=== PATIENT | female | born 1980 | race American Indian/Alaskan Native ===

== ENCOUNTER 2020-10-05 23:22 | Outpatient (CLI) | payer MEDICAID ==
[2020-10-05] MEDS ORDERED: LACTATED RINGERS 1,000 ML ONE (23:45)
[2020-10-06] MEDS ORDERED: LACTATED RINGERS 1,000 ML IV ONE (00:28)
[2020-10-06 01:56] VITALS: BP 133/76
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
== END 2020-10-06 02:46 | disposition home or self-care (01) ==
LOC: TRG 23:22 → APU 23:26 → TRG 10-06 02:46
PROVIDERS: ATTEND Obstetrics & Gynecology
DX: O62.9 Abnormality of forces of labor, unspecified (principal); O09.523 Supervision of elderly multigravida, third trimester; O99.333 Smoking (tobacco) complicating pregnancy, third trimester; F17.200 Nicotine dependence, unspecified, uncomplicated; Z3A.33 33 weeks gestation of pregnancy; V49.9XXA Car occupant (driver) (passenger) injured in unspecified traffic accident, initial encounter; Y93.89 Activity, other specified; Y92.89 Other specified places as the place of occurrence of the external cause; Y99.8 Other external cause status
CPT/HCPCS: 59025; 76815; 76816; 85460; 96360; 96361

== ENCOUNTER 2020-11-10 10:07 | Inpatient (IN) | payer MEDICAID ==
[2020-11-10] MEDS ORDERED: LOPERAMIDE 2 MG CAP PO PRN (13:04)
[2020-11-10] MEDS ORDERED: miSOPROStol 200 MCG TAB PR PRN (13:04)
[2020-11-10] MEDS ORDERED: CARBOPROST TROMETHAMINE 250 MCG/1 ML INJ IM PRN (13:04)
[2020-11-10] MEDS ORDERED: LIDOCAINE (2%) 20 MG/1 ML VIAL 20 ML MDV INFILTRATI NR (13:04)
--- NOTE | 2020-11-10 13:08 | History and Physical Report ---
History of Present Illness Date of examination: 11/10/20 Chief complaint: Contractions since 0500, now SROM clear fluid History of present illness: EDC Confirmation: 11/22/2020 Past History : 1 Term Births: 0 Premature Births: 0 Living Children: 0 Para: 0 Mult. Births: 0 Prev : 0 Aborta: 0 Elect. Ab: 0 Spont. 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 % Sun Exposure: occasionally Family History Risk Factors: Family History of PA in females < 65 years old: no Family History of PA in males < 55 years old: no Dietary Counseling: yes Past Medical History: Reviewed history from 01/12/2014 and no changes required: Anemia Past Surgical History: Reviewed history from 01/12/2014 and no changes required: negative Family History Summary: MGM - Has Family History of Stomach Cancer - Entered On: 08/02/2020 MGM - Has Family History of Hypertension - Entered On: 08/02/2020 PGM - Has Family History of Diabetes - Entered On: 08/02/2020 MGM - Has Family History Breast Cancer - Entered On: 08/02/2020 General Comments - FH: breast CA/cx CA/endometrial CA-mgm DM-father,PGF/PGM Social History: Reviewed history from 01/12/2014 and no changes required: Patient is Smoking History: Patient has never smoked. lives in [facility] +marijuana use"I cook with it, I use it in almost everyting but I don't smoke it. I use it as a herb" Past Medical History Anesthesia Complications: negative Anemia: positive Autoimmune Disorder: negative Bleeding Disorder: negative Blood Transfusions: negative Breast Disease: negative Diabetes: negative Heart Disease: negative Hypertension: negative Hepatitis/Liver Disease: negative Kidney Disease/UTI: negative Neurologic/Epilepsy/Migraines: negative Phlebitis/Varicosities: negative Psychiatric: negative Pulmonary Disease/Asthma: negative Thyroid Disease: negative Hospitalizations: negative Surgery (Non-gaming investigator): negative Abnormal PAP: positive, HPV + 2017 MAL Exposure: negative Infertility: negative Uterine Anomaly: negative Uterine Surgery (not C/S): negative Other Gynecologic Problems: negative Social Hx: Patient is Smoking History: Patient has never smoked. lives in [facility] +marijuana use"I cook with it, I use it in almost everyting but I don't smoke it. I use it as a herb" Infection History Hx of STD: HPV HIV Risk Eval: no Hepatitis B Risk Eval: low risk Personal hx. of genital herpes: no Partner hx. of genital herpes: no Rash, Viral, or Febrile illness since last LMP? no Varicella/Chicken Pox Status: Immunized TB Risk: no Genetic History ADVANCED MATERNAL AGE Congenital Heart Defect: Mom: no Dad: no Delmi Disease: Mom: no Dad: no Thalassemia Mom: no Dad: no Neural Tube Defect Mom: no Dad: no Down's Syndrome Mom: no Dad: no Destin-Sachs Mom: no Dad: no Sickle Cell Disease/Trait Mom: no Dad: no Hemophilia Mom: no Dad: no Muscular Dystrophy Mom: no Dad: no Cystic Fibrosis Mom: no Dad: no Magnolia Chorea Mom: no Dad: no Mental Retardation Mom: no Dad: no Fragile X Mom: no Dad: no Other Genetic/Chromosomal Disorder Mom: no Dad: no Child w/other defect Mom: no Dad: no Enviromental Exposures Enviromental Exposures Reviewed Xray Exposure: no Medication, drug, or alcohol use since LMP: no Chemical/Other Exposure: no Exposure to Cat Liter: yes Hx of Parvovirus (Fifth Disease): no Occupational Exposure to Children: none Active Medications (reviewed today): PNV Current Allergies (reviewed today): No known allergies Past History Past Medical History: other (see HPI) Past Surgical History: other (see HPI) 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 (See HPI) Family/Genetic History: other (see HPI) Social history: , lives with family - Obstetrical History Expected Date of Delivery: 11/22/20 Actual Gestation: 38 Week(s) 2 Day(s) : 1 Para: 0 Hx # Term Pregnancies: 0 Number of Pregnancies: 0 Spontaneous Abortions: 0 Induced : 0 Number of Living Children: 0 Medications and Allergies Allergies Allergy/AdvReac Type Severity Reaction Status Date / Time No Known Allergies Allergy Unverified 10/05/20 23:40 Review of Systems All systems: negative - Vital Signs Vital signs: Vital Signs Pulse BP 100 H 167/107 11/10/20 10:33 11/10/20 10:33 Temp Pulse Resp BP Pulse Ox 99.0 F 102 H 16 141/94 99 11/10/20 10:37 11/10/20 12:55 11/10/20 10:37 11/10/20 12:55 11/10/20 11:37 - Physical Exam Breasts: Positive: normal Cardiovascular: Regular rate Lungs: Positive: Normal air movement Abdomen: Positive: normal appearance, soft Genitourinary (Female): Positive: normal external genitalia, normal perenium Vulva: both: normal Vagina: Positive: normal moisture (SROM - small amount clear fluid) Uterus: Positive: normal size, normal contour Extremities: Positive: edema (2+ pitting) Deep Tendon Reflex Grade: Normal +2 - Obstetrical FHR: category 1 Uterine Contraction Monitor Mode: External Cervical Dilatation: 4 (per cargo handler Lola) Uterine Contraction Pattern: Regular Uterine Tone Measurement Phase: Contraction Uterine Contraction Intensity: Moderate Results Result Diagrams: 11/10/20 13:44 All other labs normal. Assessment and Plan 40y/o @ 38+2 weeks presented with ctx since 0500. cervical changed from 3 to 4 while in triage. b/p reviewed elevated, admission orders in EMR. GBS negative. 71lb weight gain during . - Patient Problems (1) 38 weeks gestation of Current Visit: Yes Status: Acute (2) Elevated blood pressure reading Current Visit: Yes Status: Acute Plan to address problem: pre-e labs collected Continue to monitor pressures mag sulfate if pressures reach severe range Pt is currently asymptomatic, states she is fearful and in pain. (3) SROM (spontaneous rupture of membranes) Onset Date: ~11/10/20 Current Visit: Yes Status: Acute Plan to address problem: limit SVEs monitor VSS per hospital protocol
[2020-11-10] MEDS ORDERED: ACETAMINOPHEN 325 MG TAB PO PRN (13:30)
[2020-11-10] MEDS ORDERED: ePHEDrine SULFATE 50 MG/1 ML INJ IV PRN (13:30)
[2020-11-10] MEDS ORDERED: fentaNYL 100 MCG/2 ML INJ IV PRN (13:30)
[2020-11-10] MEDS ORDERED: OXYTOCIN 10 UNIT/1 ML INJ IM PRN (13:30)
[2020-11-10] MEDS ORDERED: TERBUTALINE 1 MG/1 ML INJ SUB-Q PRN (13:30)
[2020-11-10] MEDS ORDERED: OXYTOCIN DRIP 30 UNITS/500 ML BAG IV SCH ×2 (14:00)
[2020-11-10 14:22] LABS: Hematocrit 31.8 % (30.3-42.9); Hemoglobin 11.1 gm/dl (10.1-14.3); Mean Corpuscular HGB Conc 35 % (30-34); Mean Corpuscular Volume 99 fl (79-97); Platelet Count 183 K/mm3 (140-440); Red Blood Count 3.21 M/mm3 (3.65-5.03); Red Cell Distribution Width 13.5 % (13.2-15.2)
[2020-11-10] MEDS: LACTATED RINGERS 1,000 ML IV SCH ×3 (14:32→20:58)
[2020-11-10 15:45] LABS: Alanine Aminotransferase 29 units/L (7-56); Uric Acid 5.6 mg/dL (3.5-7.6)
[2020-11-10] MEDS ORDERED: MAGNESIUM SULFATE 4 GM/100 ML BAG IV ONE (16:07)
[2020-11-10 16:09] LABS: Bilirubin,Urine NEG (Negative); Blood,Urine LG (Negative); Color,Urine Yellow (Yellow); Urobilinogen,Urine < 2.0 mg/dL (<2.0)
--- NOTE | 2020-11-10 16:13 | Progress Note ---
Assessment and Plan patient very vocal with ctx, bloody show noted by ESTER. LUCIE 4/100/-2. EFW ~9lbs. Starting Mag sulfate for pre-e. - Patient Problems (1) 38 weeks gestation of Current Visit: Yes Status: Acute (2) SROM (spontaneous rupture of membranes) Onset Date: ~11/10/20 Current Visit: Yes Status: Acute (3) Pre-eclampsia Current Visit: Yes Status: Acute Qualifiers: Trimester: third trimester Qualified Code(s): O14.93 - Unspecified pre-ecl ampsia, third trimester Plan to address problem: elevated AST blood pressures remain elevated - several in severe range Advised patient will start magnesium sulfate for neuro protection. encouraged pain management. Subjective - Subjective Date of service: 11/10/20 Principal diagnosis: IUP @ 38+2; Labor, pre-e Interval history: EDC Confirmation: 11/22/2020 Past History : 1 Term Births: 0 Premature Births: 0 Living Children: 0 Para: 0 Mult. Births: 0 Prev : 0 Aborta: 0 Elect. Ab: 0 Spont. 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 % Sun Exposure: occasionally Family History Risk Factors: Family History of UT in females < 65 years old: no Family History of UT in males < 55 years old: no Dietary Counseling: yes Past Medical History: Reviewed history from 01/12/2014 and no changes required: Anemia Past Surgical History: Reviewed history from 01/12/2014 and no changes required: negative Family History Summary: MGM - Has Family History of Stomach Cancer - Entered On: 08/02/2020 MGM - Has Family History of Hypertension - Entered On: 08/02/2020 PGM - Has Family History of Diabetes - Entered On: 08/02/2020 MGM - Has Family History Breast Cancer - Entered On: 08/02/2020 General Comments - FH: breast CA/cx CA/endometrial CA-mgm DM-father,PGF/PGM Social History: Reviewed history from 01/12/2014 and no changes required: Patient is Smoking History: Patient has never smoked. lives in [place] +marijuana use"I cook with it, I use it in almost everyting but I don't smoke it. I use it as a herb" Past Medical History Anesthesia Complications: negative Anemia: positive Autoimmune Disorder: negative Bleeding Disorder: negative Blood Transfusions: negative Breast Disease: negative Diabetes: negative Heart Disease: negative Hypertension: negative Hepatitis/Liver Disease: negative Kidney Disease/UTI: negative Neurologic/Epilepsy/Migraines: negative Phlebitis/Varicosities: negative Psychiatric: negative Pulmonary Disease/Asthma: negative Thyroid Disease: negative Hospitalizations: negative Surgery (Non-branch chief): negative Abnormal PAP: positive, HPV + 2017 MAL Exposure: negative Infertility: negative Uterine Anomaly: negative Uterine Surgery (not C/S): negative Other Gynecologic Problems: negative Social Hx: Patient is Smoking History: Patient has never smoked. lives in [place] +marijuana use"I cook with it, I use it in almost everyting but I don't smoke it. I use it as a herb" Infection History Hx of STD: HPV HIV Risk Eval: no Hepatitis B Risk Eval: low risk Personal hx. of genital herpes: no Partner hx. of genital herpes: no Rash, Viral, or Febrile illness since last LMP? no Varicella/Chicken Pox Status: Immunized TB Risk: no Genetic History ADVANCED MATERNAL AGE Congenital Heart Defect: Mom: no Dad: no Delmi Disease: Mom: no Dad: no Thalassemia Mom: no Dad: no Neural Tube Defect Mom: no Dad: no Down's Syndrome Mom: no Dad: no Destin-Sachs Mom: no Dad: no Sickle Cell Disease/Trait Mom: no Dad: no Hemophilia Mom: no Dad: no Muscular Dystrophy Mom: no Dad: no Cystic Fibrosis Mom: no Dad: no Magnolia Chorea Mom: no Dad: no Mental Retardation Mom: no Dad: no Fragile X Mom: no Dad: no Other Genetic/Chromosomal Disorder Mom: no Dad: no Child w/other defect Mom: no Dad: no Enviromental Exposures Enviromental Exposures Reviewed Xray Exposure: no Medication, drug, or alcohol use since LMP: no Chemical/Other Exposure: no Exposure to Cat Liter: yes Hx of Parvovirus (Fifth Disease): no Occupational Exposure to Children: none Active Medications (reviewed today): PNV Current Allergies (reviewed today): No known allergies Patient reports: loss of fluid, movement normal, contractions, no vaginal bleeding Objective - Vital Signs Vital Signs: Vital Signs - 12hr 11/10/20 11/10/20 11/10/20 10:33 10:34 10:37 Temperature 99.0 F Pulse Rate 100 H 98 H 96 H Respiratory 16 Rate Blood Pressure 167/107 157/87 Blood Pressure 157/87 [Right] O2 Sat by Pulse 100 Oximetry 11/10/20 11/10/20 11/10/20 10:42 10:47 10:52 Temperature Pulse Rate 104 H 99 H 95 H Respiratory Rate Blood Pressure Blood Pressure [Right] O2 Sat by Pulse 100 100 100 Oximetry 11/10/20 11/10/20 11/10/20 10:57 11:02 11:07 Temperature Pulse Rate 104 H 100 H 87 Respiratory Rate Blood Pressure Blood Pressure [Right] O2 Sat by Pulse 100 99 99 Oximetry 11/10/20 11/10/20 11/10/20 11:12 11:17 11:22 Temperature Pulse Rate 95 H 91 H 108 H Respiratory Rate Blood Pressure Blood Pressure [Right] O2 Sat by Pulse 100 100 100 Oximetry 11/10/20 11/10/20 11/10/20 11:27 11:32 11:37 Temperature Pulse Rate 88 91 H 100 H Respiratory Rate Blood Pressure Blood Pressure [Right] O2 Sat by Pulse 100 100 99 Oximetry 11/10/20 11/10/20 11/10/20 12:38 12:46 12:55 Temperature Pulse Rate 105 H 98 H 102 H Respiratory Rate Blood Pressure 175/106 158/97 141/94 Blood Pressure [Right] O2 Sat by Pulse Oximetry 11/10/20 11/10/20 11/10/20 13:19 13:24 13:28 Temperature Pulse Rate 111 H 109 H 79 Respiratory Rate Blood Pressure Blood Pressure [Right] O2 Sat by Pulse 100 100 94 Oximetry 11/10/20 11/10/20 11/10/20 13:29 13:34 13:39 Temperature Pulse Rate 106 H 111 H 108 H Respiratory Rate Blood Pressure Blood Pressure [Right] O2 Sat by Pulse 100 100 100 Oximetry 11/10/20 11/10/20 11/10/20 13:42 13:44 13:47 Temperature Pulse Rate 104 H 106 H 106 H Respiratory Rate Blood Pressure 172/115 157/92 Blood Pressure [Right] O2 Sat by Pulse 92 100 Oximetry 11/10/20 11/10/20 11/10/20 13:49 13:51 13:54 Temperature Pulse Rate 109 H 61 103 H Respiratory Rate Blood Pressure Blood Pressure [Right] O2 Sat by Pulse 100 91 99 Oximetry 11/10/20 11/10/20 11/10/20 13:58 13:59 14:04 Temperature Pulse Rate 113 H 101 H 99 H Respiratory Rate Blood Pressure Blood Pressure [Right] O2 Sat by Pulse 93 99 98 Oximetry 11/10/20 11/10/20 11/10/20 14:09 14:18 14:23 Temperature Pulse Rate 105 H 112 H 104 H Respiratory Rate Blood Pressure Blood Pressure [Right] O2 Sat by Pulse 100 99 100 Oximetry 11/10/20 11/10/20 11/10/20 14:27 14:28 14:36 Temperature Pulse Rate 102 H 102 H 107 H Respiratory Rate Blood Pressure 137/89 Blood Pressure [Right] O2 Sat by Pulse 99 98 Oximetry 11/10/20 11/10/20 11/10/20 14:37 14:41 14:46 Temperature Pulse Rate 109 H 101 H 105 H Respiratory Rate Blood Pressure Blood Pressure [Right] O2 Sat by Pulse 88 98 98 Oximetry 11/10/20 11/10/20 11/10/20 14:47 14:51 14:56 Temperature Pulse Rate 98 H 102 H 105 H Respiratory Rate Blood Pressure 165/98 Blood Pressure [Right] O2 Sat by Pulse 99 97 Oximetry 11/10/20 11/10/20 11/10/20 15:01 15:21 15:23 Temperature Pulse Rate 99 H 105 H 63 Respiratory Rate Blood Pressure Blood Pressure [Right] O2 Sat by Pulse 99 99 87 Oximetry 11/10/20 11/10/20 11/10/20 15:29 15:32 15:35 Temperature Pulse Rate 97 H 68 Respiratory Rate Blood Pressure Blood Pressure [Right] O2 Sat by Pulse 91 100 94 Oximetry 11/10/20 11/10/20 11/10/20 15:38 15:54 15:59 Temperature Pulse Rate 37 L 94 H 96 H Respiratory Rate Blood Pressure Blood Pressure [Right] O2 Sat by Pulse 92 98 99 Oximetry 11/10/20 16:04 Temperature Pulse Rate 91 H Respiratory Rate Blood Pressure Blood Pressure [Right] O2 Sat by Pulse 99 Oximetry - Exam Breasts: normal Cardiovascular: Regular rate Lungs: Normal air movement Abdomen: Present: normal appearance, soft Vulva: both: normal Uterus: Present: normal, fundal height above umbilicus FHR: auscultation normal Uterine Contraction Monitor Mode: External Cervical Dilatation: 4 Cervical Effacement Percentage: 100 station: -2 Uterine Contraction Frequency (min): 2-3 Uterine Contraction Duration: 60 Uterine Contraction Pattern: Regular Uterine Tone Measurement Phase: Contraction Uterine Contraction Intensity: Moderate Extremities: normal Deep Tendon Reflex Grade: Normal +2 - Labs Labs: Abnormal Labs 11/10/20 11/10/20 11/10/20 13:44 13:44 Unknown WBC 15.6 H RBC 3.21 L MCV 99 H MCH 34 H MCHC 35 H Creatinine 0.5 L AST 80 H Lactate Dehydrogenase 613 H Membranes Rupture Positive A Laboratory Results - last 24 hr 11/10/20 11/10/20 11/10/20 13:44 13:44 13:44 WBC 15.6 H RBC 3.21 L Hgb 11.1 Hct 31.8 MCV 99 H MCH 34 H MCHC 35 H RDW 13.5 Plt Count 183 Creatinine 0.5 L Estimated GFR > 60 Uric Acid 5.6 AST 80 H ALT 29 Lactate Dehydrogenase 613 H Membranes Rupture Syphilis IgG Antibody Nonreactive 11/10/20 Unknown WBC RBC Hgb Hct MCV MCH MCHC RDW Plt Count Creatinine Estimated GFR Uric Acid AST ALT Lactate Dehydrogenase Membranes Rupture Positive A Syphilis IgG Antibody
[2020-11-10] MEDS: MAGNESIUM SULFATE 40GM/1000ML 40 GM/1,000 ML BAG IV SCH (17:28)
[2020-11-10] MEDS ORDERED: MINERAL OIL 30 ML ORAL LIQD ONE (17:36)
[2020-11-10] MEDS ORDERED: NALOXONE 2 MG/2 ML INJ IV PRN (17:55)
[2020-11-10] MEDS ORDERED: LACTATED RINGERS 250 ML IV SOLN IV ONE (17:55)
[2020-11-10] MEDS ORDERED: diphenhydrAMINE 50 MG/ML VIAL IV PRN (17:55)
[2020-11-10] MEDS ORDERED: ONDANSETRON 4 MG/2 ML INJ IV PRN (17:55)
[2020-11-10] MEDS ORDERED: NalbUPHINE 10 MG/1 ML INJ IV PRN (17:55)
--- NOTE | 2020-11-10 17:58 | Anesthesia Consultation ---
Anesthesia Consult and Med Hx Date of service: 11/10/20 - Airway Anesthetic Teeth Evaluation: Good ROM Head & Neck: Adequate Mental/Hyoid Distance: Adequate Mallampati Class: Class II Intubation Access Assessment: Probably Good - Pulmonary Exam CTA: Yes - Cardiac Exam Cardiac Exam: RRR - Pre-Operative Health Status ASA Pre-Surgery Classification: ASA2 Proposed Anesthetic Plan: Epidural - Pulmonary Hx Smoking: No Hx Asthma: No Hx Sleep Apnea: No - Cardiovascular System Hx Hypertension: Yes (pre eclamptic) Hx Heart Attack/AMI: No Hx Angina: No - Central Nervous System Hx Seizures: No Hx Psychiatric Problems: No - Endocrine Hx Renal Disease: No Hx Liver Disease: No Hx Insulin Dependent Diabetes: No Hx Non-Insulin Dependent Diabetes: No Hx Hypothyroidism: No Hx Hyperthyroidism: No - Hematic Hx Anemia: No Hx Sickle Cell Disease: No - Other Systems Hx Alcohol Use: No Hx Obesity: Yes
--- NOTE | 2020-11-10 18:40 | Progress Note ---
Labor Epidural - Labor Epidural Start Time: 18:25 Stop Time: 18:40 Performed by:: SAMSON LAMA ([facility]) Procedure: Patient is requesting epidural for labor and pain. H&P, labs were reviewed. Patient IDed, H&P reviewed, all questions and concerns were answered, and consent was signed. Timeout was performed at bedside. Patient in sitting position. Sterile prep and drape was performed. 3ml of 1% lidocaine skin wheal at L[3]- L [4]. 18-gauge Kimmy epidural needle was advanced to loss of resistance with air technique 9cm. Negative CSF negative blood. Epidural catheter advanced to [15] centimeters. [negative] Aspiration [negative] test dose. Sterile dressing applied. Patient tolerated procedure.
[2020-11-10] MEDS: fentaNYL-BUPIV 2 MCG/ML-0.125% 200 MCG/100 ML BAG EPIDURAL SCH (18:47)
[2020-11-10] MEDS ORDERED: MINERAL OIL 30 ML ORAL LIQD PO PRN (22:00)
--- NOTE | 2020-11-10 22:14 | Progress Note ---
Assessment and Plan patient c/o feeling vaginal pressure with ctx, SVE now 7.5/100/-1 forebag. Mec fluid noted. NICU aware. pt positioned with peanut ball. Pelvis feels adequate - Patient Problems (1) 38 weeks gestation of Current Visit: Yes Status: Acute (2) SROM (spontaneous rupture of membranes) Onset Date: ~11/10/20 Current Visit: Yes Status: Acute (3) Pre-eclampsia Current Visit: Yes Status: Acute Qualifiers: Trimester: third trimester Qualified Code(s): O14.93 - Unspecified pre- eclampsia, third trimester Plan to address problem: magnesium sulfate for neuro protection x 24hes post delivery. Mag level q6hr strict I&O Subjective - Subjective Date of service: 11/10/20 Principal diagnosis: IUP @ 38+2; Labor, pre-e Interval history: EDC Confirmation: 11/22/2020 Past History : 1 Term Births: 0 Premature Births: 0 Living Children: 0 Para: 0 Mult. Births: 0 Prev : 0 Aborta: 0 Elect. Ab: 0 Spont. 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 use: preg-primary substance abuse counselor % Sun Exposure: occasionally Family History Risk Factors: Family History of [place] in females < 65 years old: no Family History of [place] in males < 55 years old: no Dietary Counseling: yes Past Medical History: Reviewed history from 01/12/2014 and no changes required: Anemia Past Surgical History: Reviewed history from 01/12/2014 and no changes required: negative Family History Summary: MGM - Has Family History of Stomach Cancer - Entered On: 08/02/2020 MGM - Has Family History of Hypertension - Entered On: 08/02/2020 PGM - Has Family History of Diabetes - Entered On: 08/02/2020 MGM - Has Family History Breast Cancer - Entered On: 08/02/2020 General Comments - FH: breast CA/cx CA/endometrial CA-mgm DM-father,PGF/PGM Social History: Reviewed history from 01/12/2014 and no changes required: Patient is Smoking History: Patient has never smoked. lives in [facility] +marijuana use"I cook with it, I use it in almost everyting but I don't smoke it. I use it as a herb" Past Medical History Anesthesia Complications: negative Anemia: positive Autoimmune Disorder: negative Bleeding Disorder: negative Blood Transfusions: negative Breast Disease: negative Diabetes: negative Heart Disease: negative Hypertension: negative Hepatitis/Liver Disease: negative Kidney Disease/UTI: negative Neurologic/Epilepsy/Migraines: negative Phlebitis/Varicosities: negative Psychiatric: negative Pulmonary Disease/Asthma: negative Thyroid Disease: negative Hospitalizations: negative Surgery (Non-reference test clerk): negative Abnormal PAP: positive, HPV + 2017 MAL Exposure: negative Infertility: negative Uterine Anomaly: negative Uterine Surgery (not C/S): negative Other Gynecologic Problems: negative Social Hx: Patient is Smoking History: Patient has never smoked. lives in [facility] +marijuana use"I cook with it, I use it in almost everyting but I don't smoke it. I use it as a herb" Infection History Hx of STD: HPV HIV Risk Eval: no Hepatitis B Risk Eval: low risk Personal hx. of genital herpes: no Partner hx. of genital herpes: no Rash, Viral, or Febrile illness since last LMP? no Varicella/Chicken Pox Status: Immunized TB Risk: no Genetic History ADVANCED MATERNAL AGE Congenital Heart Defect: Mom: no Dad: no Delmi Disease: Mom: no Dad: no Thalassemia Mom: no Dad: no Neural Tube Defect Mom: no Dad: no Down's Syndrome Mom: no Dad: no Destin-Sachs Mom: no Dad: no Sickle Cell Disease/Trait Mom: no Dad: no Hemophilia Mom: no Dad: no Muscular Dystrophy Mom: no Dad: no Cystic Fibrosis Mom: no Dad: no Magn[place] Chorea Mom: no Dad: no Mental Retardation Mom: no Dad: no Fragile X Mom: no Dad: no Other Genetic/Chromosomal Disorder Mom: no Dad: no Child w/other defect Mom: no Dad: no Enviromental Exposures Enviromental Exposures Reviewed Xray Exposure: no Medication, drug, or alcohol use since LMP: no Chemical/Other Exposure: no Exposure to Cat Liter: yes Hx of Parvovirus (Fifth Disease): no Occupational Exposure to Children: none Active Medications (reviewed today): PNV Current Allergies (reviewed today): No known allergies Patient reports: no new complaints (comfortable with epidural), no vaginal bleeding Objective - Vital Signs Vital Signs: Vital Signs - 12hr 11/10/20 11/10/20 11/10/20 10:33 10:34 10:37 Temperature 99.0 F Pulse Rate 100 H 98 H 96 H Respiratory 16 Rate Blood Pressure 167/107 157/87 Blood Pressure 157/87 [Right] O2 Sat by Pulse 100 Oximetry 11/10/20 11/10/20 11/10/20 10:42 10:47 10:52 Temperature Pulse Rate 104 H 99 H 95 H Respiratory Rate Blood Pressure Blood Pressure [Right] O2 Sat by Pulse 100 100 100 Oximetry 11/10/20 11/10/20 11/10/20 10:57 11:02 11:07 Temperature Pulse Rate 104 H 100 H 87 Respiratory Rate Blood Pressure Blood Pressure [Right] O2 Sat by Pulse 100 99 99 Oximetry 11/10/20 11/10/20 11/10/20 11:12 11:17 11:22 Temperature Pulse Rate 95 H 91 H 108 H Respiratory Rate Blood Pressure Blood Pressure [Right] O2 Sat by Pulse 100 100 100 Oximetry 11/10/20 11/10/20 11/10/20 11:27 11:32 11:37 Temperature Pulse Rate 88 91 H 100 H Respiratory Rate Blood Pressure Blood Pressure [Right] O2 Sat by Pulse 100 100 99 Oximetry 11/10/20 11/10/20 11/10/20 12:38 12:46 12:55 Temperature Pulse Rate 105 H 98 H 102 H Respiratory Rate Blood Pressure 175/106 158/97 141/94 Blood Pressure [Right] O2 Sat by Pulse Oximetry 11/10/20 11/10/20 11/10/20 13:19 13:24 13:28 Temperature Pulse Rate 111 H 109 H 79 Respiratory Rate Blood Pressure Blood Pressure [Right] O2 Sat by Pulse 100 100 94 Oximetry 11/10/20 11/10/20 11/10/20 13:29 13:34 13:39 Temperature Pulse Rate 106 H 111 H 108 H Respiratory Rate Blood Pressure Blood Pressure [Right] O2 Sat by Pulse 100 100 100 Oximetry 11/10/20 11/10/20 11/10/20 13:42 13:44 13:47 Temperature Pulse Rate 104 H 106 H 106 H Respiratory Rate Blood Pressure 172/115 157/92 Blood Pressure [Right] O2 Sat by Pulse 92 100 Oximetry 11/10/20 11/10/20 11/10/20 13:49 13:51 13:54 Temperature Pulse Rate 109 H 61 103 H Respiratory Rate Blood Pressure Blood Pressure [Right] O2 Sat by Pulse 100 91 99 Oximetry 11/10/20 11/10/20 11/10/20 13:58 13:59 14:04 Temperature Pulse Rate 113 H 101 H 99 H Respiratory Rate Blood Pressure Blood Pressure [Right] O2 Sat by Pulse 93 99 98 Oximetry 11/10/20 11/10/20 11/10/20 14:09 14:18 14:23 Temperature Pulse Rate 105 H 112 H 104 H Respiratory Rate Blood Pressure Blood Pressure [Right] O2 Sat by Pulse 100 99 100 Oximetry 11/10/20 11/10/20 11/10/20 14:27 14:28 14:36 Temperature Pulse Rate 102 H 102 H 107 H Respiratory Rate Blood Pressure 137/89 Blood Pressure [Right] O2 Sat by Pulse 99 98 Oximetry 11/10/20 11/10/20 11/10/20 14:37 14:41 14:46 Temperature Pulse Rate 109 H 101 H 105 H Respiratory Rate Blood Pressure Blood Pressure [Right] O2 Sat by Pulse 88 98 98 Oximetry 11/10/20 11/10/20 11/10/20 14:47 14:51 14:56 Temperature Pulse Rate 98 H 102 H 105 H Respiratory Rate Blood Pressure 165/98 Blood Pressure [Right] O2 Sat by Pulse 99 97 Oximetry 11/10/20 11/10/20 11/10/20 15:01 15:21 15:23 Temperature Pulse Rate 99 H 105 H 63 Respiratory Rate Blood Pressure Blood Pressure [Right] O2 Sat by Pulse 99 99 87 Oximetry 11/10/20 11/10/20 11/10/20 15:29 15:32 15:35 Temperature Pulse Rate 97 H 68 Respiratory Rate Blood Pressure Blood Pressure [Right] O2 Sat by Pulse 91 100 94 Oximetry 11/10/20 11/10/20 11/10/20 15:38 15:54 15:59 Temperature Pulse Rate 37 L 94 H 96 H Respiratory Rate Blood Pressure Blood Pressure [Right] O2 Sat by Pulse 92 98 99 Oximetry 11/10/20 11/10/20 11/10/20 16:04 16:09 16:12 Temperature Pulse Rate 91 H 101 H 101 H Respiratory Rate Blood Pressure Blood Pressure [Right] O2 Sat by Pulse 99 99 84 Oximetry 11/10/20 11/10/20 11/10/20 16:15 16:20 16:27 Temperature Pulse Rate 101 H 105 H 100 H Respiratory Rate Blood Pressure Blood Pressure [Right] O2 Sat by Pulse 96 98 100 Oximetry 11/10/20 11/10/20 11/10/20 16:30 16:36 16:40 Temperature Pulse Rate 96 H 96 H Respiratory Rate Blood Pressure 141/92 Blood Pressure [Right] O2 Sat by Pulse 88 100 Oximetry 11/10/20 11/10/20 11/10/20 17:07 17:11 17:12 Temperature 99.0 F Pulse Rate 86 106 H Respiratory Rate Blood Pressure Blood Pressure [Right] O2 Sat by Pulse 98 98 Oximetry 11/10/20 11/10/20 11/10/20 17:17 17:22 17:27 Temperature Pulse Rate 101 H 104 H 94 H Respiratory Rate Blood Pressure Blood Pressure [Right] O2 Sat by Pulse 98 97 98 Oximetry 11/10/20 11/10/20 11/10/20 17:32 17:37 17:42 Temperature Pulse Rate 95 H 98 H 116 H Respiratory Rate Blood Pressure Blood Pressure [Right] O2 Sat by Pulse 100 98 96 Oximetry 11/10/20 11/10/20 11/10/20 17:47 17:52 17:57 Temperature Pulse Rate 102 H 101 H 107 H Respiratory Rate Blood Pressure Blood Pressure [Right] O2 Sat by Pulse 98 99 100 Oximetry 11/10/20 11/10/20 11/10/20 18:02 18:07 18:12 Temperature Pulse Rate 97 H 99 H 104 H Respiratory Rate Blood Pressure Blood Pressure [Right] O2 Sat by Pulse 99 99 100 Oximetry 11/10/20 11/10/20 11/10/20 18:17 18:22 18:24 Temperature Pulse Rate 107 H 101 H 101 H Respiratory Rate Blood Pressure 153/94 Blood Pressure [Right] O2 Sat by Pulse 99 99 Oximetry 11/10/20 11/10/20 11/10/20 18:27 18:28 18:32 Temperature Pulse Rate 105 H 111 H 91 H Respiratory Rate Blood Pressure 134/87 Blood Pressure [Right] O2 Sat by Pulse 99 99 Oximetry 11/10/20 11/10/20 11/10/20 18:34 18:37 18:38 Temperature Pulse Rate 92 H 109 H 99 H Respiratory Rate Blood Pressure 133/76 141/80 Blood Pressure [Right] O2 Sat by Pulse 100 Oximetry 11/10/20 11/10/20 11/10/20 18:42 18:45 18:47 Temperature Pulse Rate 98 H 90 89 Respiratory Rate Blood Pressure 115/62 Blood Pressure [Right] O2 Sat by Pulse 99 99 Oximetry 11/10/20 11/10/20 11/10/20 18:49 18:52 18:53 Temperature Pulse Rate 85 88 88 Respiratory Rate Blood Pressure 118/65 107/60 Blood Pressure [Right] O2 Sat by Pulse 99 Oximetry 11/10/20 11/10/20 11/10/20 18:57 18:58 19:02 Temperature Pulse Rate 91 H 85 86 Respiratory Rate Blood Pressure 101/57 Blood Pressure [Right] O2 Sat by Pulse 100 100 Oximetry 11/10/20 11/10/20 11/10/20 19:05 19:07 19:08 Temperature Pulse Rate 86 88 87 Respiratory Rate Blood Pressure 109/58 104/59 Blood Pressure [Right] O2 Sat by Pulse 100 Oximetry 11/10/20 11/10/20 11/10/20 19:12 19:15 19:17 Temperature 98.8 F Pulse Rate 89 87 91 H Respiratory 14 Rate Blood Pressure 110/72 Blood Pressure 110/72 [Right] O2 Sat by Pulse 100 100 Oximetry 11/10/20 11/10/20 11/10/20 19:19 19:22 19:23 Temperature Pulse Rate 93 H 87 86 Respiratory Rate Blood Pressure 114/66 109/63 Blood Pressure [Right] O2 Sat by Pulse 100 Oximetry 11/10/20 11/10/20 11/10/20 19:27 19:30 19:32 Temperature Pulse Rate 89 87 88 Respiratory Rate Blood Pressure 114/59 Blood Pressure [Right] O2 Sat by Pulse 100 100 Oximetry 11/10/20 11/10/20 11/10/20 19:37 19:42 19:47 Temperature Pulse Rate 96 H 84 78 Respiratory Rate Blood Pressure Blood Pressure [Right] O2 Sat by Pulse 100 100 100 Oximetry 11/10/20 11/10/20 11/10/20 19:48 19:49 19:52 Temperature Pulse Rate 55 L 85 105 H Respiratory Rate Blood Pressure 112/64 Blood Pressure [Right] O2 Sat by Pulse 88 99 Oximetry 11/10/20 11/10/20 11/10/20 19:57 20:02 20:06 Temperature Pulse Rate 92 H 92 H 84 Respiratory Rate Blood Pressure 137/83 Blood Pressure [Right] O2 Sat by Pulse 100 100 Oximetry 11/10/20 11/10/20 11/10/20 20:07 20:12 20:17 Temperature Pulse Rate 87 88 84 Respiratory Rate Blood Pressure Blood Pressure [Right] O2 Sat by Pulse 100 100 100 Oximetry 11/10/20 11/10/20 11/10/20 20:20 20:22 20:27 Temperature Pulse Rate 83 84 81 Respiratory Rate Blood Pressure 137/86 Blood Pressure [Right] O2 Sat by Pulse 100 100 Oximetry 11/10/20 11/10/20 11/10/20 20:32 20:37 20:42 Temperature Pulse Rate 84 85 81 Respiratory Rate Blood Pressure Blood Pressure [Right] O2 Sat by Pulse 100 100 100 Oximetry 11/10/20 11/10/20 11/10/20 20:47 20:51 20:52 Temperature Pulse Rate 83 83 82 Respiratory Rate Blood Pressure 135/86 Blood Pressure [Right] O2 Sat by Pulse 100 100 Oximetry 11/10/20 11/10/20 11/10/20 20:57 21:02 21:05 Temperature Pulse Rate 106 H 93 H 96 H Respiratory Rate Blood Pressure 137/86 Blood Pressure [Right] O2 Sat by Pulse 97 100 Oximetry 11/10/20 11/10/20 11/10/20 21:07 21:12 21:17 Temperature Pulse Rate 92 H 87 93 H Respiratory Rate Blood Pressure Blood Pressure [Right] O2 Sat by Pulse 100 100 100 Oximetry 11/10/20 11/10/20 11/10/20 21:20 21:22 21:27 Temperature Pulse Rate 95 H 103 H 88 Respiratory Rate Blood Pressure 141/91 Blood Pressure [Right] O2 Sat by Pulse 100 100 Oximetry 11/10/20 11/10/20 11/10/20 21:32 21:36 21:37 Temperature Pulse Rate 94 H 98 H 97 H Respiratory Rate Blood Pressure 138/86 Blood Pressure [Right] O2 Sat by Pulse 100 100 Oximetry 11/10/20 11/10/20 11/10/20 21:42 21:47 21:52 Temperature Pulse Rate 89 95 H 94 H Respiratory Rate Blood Pressure 128/90 Blood Pressure [Right] O2 Sat by Pulse 100 100 100 Oximetry 11/10/20 11/10/2011/10/21 21:57 22:02 22:07 Temperature Pulse Rate 94 H 96 H 106 H Respiratory Rate Blood Pressure 138/85 Blood Pressure [Right] O2 Sat by Pulse 100 100 100 Oximetry - Exam Cardiovascular: Regular rate Lungs: Normal air movement Abdomen: Present: normal appearance, soft Vulva: both: normal Uterus: Present: normal, fundal height above umbilicus FHR: category 2 Uterine Contraction Monitor Mode: External Cervical Dilatation: 7.5 Cervical Effacement Percentage: 100 station: -1 Uterine Contraction Frequency (min): 2-4 Uterine Contraction Duration: 60 Uterine Contraction Pattern: Regular Uterine Tone Measurement Phase: Contraction Uterine Contraction Intensity: Strong/Firm Extremities: edema Deep Tendon Reflex Grade: Normal +2 - Labs Labs: Abnormal Labs 11/10/20 11/10/20 11/10/20 13:44 13:44 Unknown WBC 15.6 H RBC 3.21 L MCV 99 H MCH 34 H MCHC 35 H Creatinine 0.5 L AST 80 H Lactate Dehydrogenase 613 H Urine WBC (Auto) Membranes Rupture Positive A 11/10/20 Unknown WBC RBC MCV MCH MCHC Creatinine AST Lactate Dehydrogenase Urine WBC (Auto) 17.0 H Membranes Rupture Laboratory Results - last 24 hr 11/10/20 11/10/20 11/10/20 13:44 13:44 13:44 WBC 15.6 H RBC 3.21 L Hgb 11.1 Hct 31.8 MCV 99 H MCH 34 H MCHC 35 H RDW 13.5 Plt Count 183 Creatinine 0.5 L Estimated GFR > 60 Uric Acid 5.6 AST 80 H ALT 29 Lactate Dehydrogenase 613 H Urine Color Urine Turbidity Urine pH Ur Specific [place] Urine Protein Urine Glucose (UA) Urine Ketones Urine Blood Urine Nitrite Urine Bilirubin Urine Urobilinogen Ur Leukocyte Esterase Urine WBC (Auto) Urine RBC (Auto) U Epithel Cells (Auto) Membranes Rupture Syphilis IgG Antibody Nonreactive Blood Type Antibody Screen 11/10/20 11/10/20 11/10/20 16:00 Unknown Unknown WBC RBC Hgb Hct MCV MCH MCHC RDW Plt Count Creatinine Estimated GFR Uric Acid AST ALT Lactate Dehydrogenase Urine Color Yellow Urine Turbidity Clear Urine pH 6.0 Ur Specific [place] 1.011 Urine Protein 100 mg/dl Urine Glucose (UA) Neg Urine Ketones Neg Urine Blood Lg Urine Nitrite Neg Urine Bilirubin Neg Urine Urobilinogen < 2.0 Ur Leukocyte Esterase Mod Urine WBC (Auto) 17.0 H Urine RBC (Auto) 8.0 U Epithel Cells (Auto) 1.0 Membranes Rupture Positive A Syphilis IgG Antibody Blood Type O POSITIVE Antibody Screen Negative
--- NOTE | 2020-11-11 00:23 | Progress Note ---
Assessment and Plan Called by nurse and informed of persistent late decels despite frequent position changes and o2 via face mask. SVE 9/100/-1, head not well engaged in pelvis. no decent of head noted during ctx. Moderate amount of thick particulate mec fluid noted. dark, concentrated urine in pate bag, output 200ml since 1900. head does not feel to be compressing drainage. Discussed concerns with patient and family that baby is large and decelerations could be sign that baby is not tolerating labor process. Will continue to closely monitor and change positions as needed, Dr. putnam updated. - Patient Problems (1) 38 weeks gestation of Current Visit: Yes Status: Acute (2) SROM (spontaneous rupture of membranes) Onset Date: ~11/10/20 Current Visit: Yes Status: Acute (3) Pre-eclampsia Current Visit: Yes Status: Acute Qualifiers: Trimester: third trimester Qualified Code(s): O14.93 - Unspecified pre- eclampsia, third trimester Plan to address problem: magnesium sulfate for neuro protection x 24hes post delivery. Mag level q6hr strict I&O Subjective - Subjective Date of service: 11/11/20 Principal diagnosis: IUP @ 38+2; Labor, pre-e Interval history: EDC Confirmation: 11/22/2020 Past History : 1 Term Births: 0 Premature Births: 0 Living Children: 0 Para: 0 Mult. Births: 0 Prev : 0 Aborta: 0 Elect. Ab: 0 Spont. 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 % Sun Exposure: occasionally Family History Risk Factors: Family History of PR in females < 65 years old: no Family History of PR in males < 55 years old: no Dietary Counseling: yes Past Medical History: Reviewed history from 01/12/2014 and no changes required: Anemia Past Surgical History: Reviewed history from 01/12/2014 and no changes required: negative Family History Summary: MGM - Has Family History of Stomach Cancer - Entered On: 08/02/2020 MGM - Has Family History of Hypertension - Entered On: 08/02/2020 PGM - Has Family History of Diabetes - Entered On: 08/02/2020 MGM - Has Family History Breast Cancer - Entered On: 08/02/2020 General Comments - FH: breast CA/cx CA/endometrial CA-mgm DM-father,PGF/PGM Social History: Reviewed history from 01/12/2014 and no changes required: Patient is Smoking History: Patient has never smoked. lives in [place] +marijuana use"I cook with it, I use it in almost everyting but I don't smoke it. I use it as a herb" Past Medical History Anesthesia Complications: negative Anemia: positive Autoimmune Disorder: negative Bleeding Disorder: negative Blood Transfusions: negative Breast Disease: negative Diabetes: negative Heart Disease: negative Hypertension: negative Hepatitis/Liver Disease: negative Kidney Disease/UTI: negative Neurologic/Epilepsy/Migraines: negative Phlebitis/Varicosities: negative Psychiatric: negative Pulmonary Disease/Asthma: negative Thyroid Disease: negative Hospitalizations: negative Surgery (Non-ob/gyn doctor): negative Abnormal PAP: positive, HPV + 2017 MAL Exposure: negative Infertility: negative Uterine Anomaly: negative Uterine Surgery (not C/S): negative Other Gynecologic Problems: negative Social Hx: Patient is Smoking History: Patient has never smoked. lives in [place] +marijuana use"I cook with it, I use it in almost everyting but I don't smoke it. I use it as a herb" Infection History Hx of STD: HPV HIV Risk Eval: no Hepatitis B Risk Eval: low risk Personal hx. of genital herpes: no Partner hx. of genital herpes: no Rash, Viral, or Febrile illness since last LMP? no Varicella/Chicken Pox Status: Immunized TB Risk: no Genetic History ADVANCED MATERNAL AGE Congenital Heart Defect: Mom: no Dad: no Delmi Disease: Mom: no Dad: no Thalassemia Mom: no Dad: no Neural Tube Defect Mom: no Dad: no Down's Syndrome Mom: no Dad: no Destin-Sachs Mom: no Dad: no Sickle Cell Disease/Trait Mom: no Dad: no Hemophilia Mom: no Dad: no Muscular Dystrophy Mom: no Dad: no Cystic Fibrosis Mom: no Dad: no Corea Chorea Mom: no Dad: no Mental Retardation Mom: no Dad: no Fragile X Mom: no Dad: no Other Genetic/Chromosomal Disorder Mom: no Dad: no Child w/other defect Mom: no Dad: no Enviromental Exposures Enviromental Exposures Reviewed Xray Exposure: no Medication, drug, or alcohol use since LMP: no Chemical/Other Exposure: no Exposure to Cat Liter: yes Hx of Parvovirus (Fifth Disease): no Occupational Exposure to Children: none Active Medications (reviewed today): PNV Current Allergies (reviewed today): No known allergies Patient reports: no new complaints (comfortable with epidural, vaginal pressure with ctx), no vaginal bleeding Objective - Vital Signs Vital Signs: Vital Signs - 12hr 11/10/20 11/10/20 11/10/20 12:38 12:46 12:55 Temperature Pulse Rate 105 H 98 H 102 H Respiratory Rate Blood Pressure 175/106 158/97 141/94 Blood Pressure [Right] O2 Sat by Pulse Oximetry 11/10/20 11/10/20 11/10/20 13:19 13:24 13:28 Temperature Pulse Rate 111 H 109 H 79 Respiratory Rate Blood Pressure Blood Pressure [Right] O2 Sat by Pulse 100 100 94 Oximetry 11/10/20 11/10/20 11/10/20 13:29 13:34 13:39 Temperature Pulse Rate 106 H 111 H 108 H Respiratory Rate Blood Pressure Blood Pressure [Right] O2 Sat by Pulse 100 100 100 Oximetry 11/10/20 11/10/20 11/10/20 13:42 13:44 13:47 Temperature Pulse Rate 104 H 106 H 106 H Respiratory Rate Blood Pressure 172/115 157/92 Blood Pressure [Right] O2 Sat by Pulse 92 100 Oximetry 11/10/20 11/10/20 11/10/20 13:49 13:51 13:54 Temperature Pulse Rate 109 H 61 103 H Respiratory Rate Blood Pressure Blood Pressure [Right] O2 Sat by Pulse 100 91 99 Oximetry 11/10/20 11/10/20 11/10/20 13:58 13:59 14:04 Temperature Pulse Rate 113 H 101 H 99 H Respiratory Rate Blood Pressure Blood Pressure [Right] O2 Sat by Pulse 93 99 98 Oximetry 11/10/20 11/10/20 11/10/20 14:09 14:18 14:23 Temperature Pulse Rate 105 H 112 H 104 H Respiratory Rate Blood Pressure Blood Pressure [Right] O2 Sat by Pulse 100 99 100 Oximetry 11/10/20 11/10/20 11/10/20 14:27 14:28 14:36 Temperature Pulse Rate 102 H 102 H 107 H Respiratory Rate Blood Pressure 137/89 Blood Pressure [Right] O2 Sat by Pulse 99 98 Oximetry 11/10/20 11/10/20 11/10/20 14:37 14:41 14:46 Temperature Pulse Rate 109 H 101 H 105 H Respiratory Rate Blood Pressure Blood Pressure [Right] O2 Sat by Pulse 88 98 98 Oximetry 11/10/20 11/10/20 11/10/20 14:47 14:51 14:56 Temperature Pulse Rate 98 H 102 H 105 H Respiratory Rate Blood Pressure 165/98 Blood Pressure [Right] O2 Sat by Pulse 99 97 Oximetry 11/10/20 11/10/20 11/10/20 15:01 15:21 15:23 Temperature Pulse Rate 99 H 105 H 63 Respiratory Rate Blood Pressure Blood Pressure [Right] O2 Sat by Pulse 99 99 87 Oximetry 11/10/20 11/10/20 11/10/20 15:29 15:32 15:35 Temperature Pulse Rate 97 H 68 Respiratory Rate Blood Pressure Blood Pressure [Right] O2 Sat by Pulse 91 100 94 Oximetry 11/10/20 11/10/20 11/10/20 15:38 15:54 15:59 Temperature Pulse Rate 37 L 94 H 96 H Respiratory Rate Blood Pressure Blood Pressure [Right] O2 Sat by Pulse 92 98 99 Oximetry 11/10/20 11/10/20 11/10/20 16:04 16:09 16:12 Temperature Pulse Rate 91 H 101 H 101 H Respiratory Rate Blood Pressure Blood Pressure [Right] O2 Sat by Pulse 99 99 84 Oximetry 11/10/20 11/10/20 11/10/20 16:15 16:20 16:27 Temperature Pulse Rate 101 H 105 H 100 H Respiratory Rate Blood Pressure Blood Pressure [Right] O2 Sat by Pulse 96 98 100 Oximetry 11/10/20 11/10/20 11/10/20 16:30 16:36 16:40 Temperature Pulse Rate 96 H 96 H Respiratory Rate Blood Pressure 141/92 Blood Pressure [Right] O2 Sat by Pulse 88 100 Oximetry 11/10/20 11/10/20 11/10/20 17:07 17:11 17:12 Temperature 99.0 F Pulse Rate 86 106 H Respiratory Rate Blood Pressure Blood Pressure [Right] O2 Sat by Pulse 98 98 Oximetry 11/10/20 11/10/20 11/10/20 17:17 17:22 17:27 Temperature Pulse Rate 101 H 104 H 94 H Respiratory Rate Blood Pressure Blood Pressure [Right] O2 Sat by Pulse 98 97 98 Oximetry 11/10/20 11/10/20 11/10/20 17:32 17:37 17:42 Temperature Pulse Rate 95 H 98 H 116 H Respiratory Rate Blood Pressure Blood Pressure [Right] O2 Sat by Pulse 100 98 96 Oximetry 11/10/20 11/10/20 11/10/20 17:47 17:52 17:57 Temperature Pulse Rate 102 H 101 H 107 H Respiratory Rate Blood Pressure Blood Pressure [Right] O2 Sat by Pulse 98 99 100 Oximetry 11/10/20 11/10/20 11/10/20 18:02 18:07 18:12 Temperature Pulse Rate 97 H 99 H 104 H Respiratory Rate Blood Pressure Blood Pressure [Right] O2 Sat by Pulse 99 99 100 Oximetry 11/10/20 11/10/20 11/10/20 18:17 18:22 18:24 Temperature Pulse Rate 107 H 101 H 101 H Respiratory Rate Blood Pressure 153/94 Blood Pressure [Right] O2 Sat by Pulse 99 99 Oximetry 11/10/20 11/10/20 11/10/20 18:27 18:28 18:32 Temperature Pulse Rate 105 H 111 H 91 H Respiratory Rate Blood Pressure 134/87 Blood Pressure [Right] O2 Sat by Pulse 99 99 Oximetry 11/10/20 11/10/20 11/10/20 18:34 18:37 18:38 Temperature Pulse Rate 92 H 109 H 99 H Respiratory Rate Blood Pressure 133/76 141/80 Blood Pressure [Right] O2 Sat by Pulse 100 Oximetry 11/10/20 11/10/20 11/10/20 18:42 18:45 18:47 Temperature Pulse Rate 98 H 90 89 Respiratory Rate Blood Pressure 115/62 Blood Pressure [Right] O2 Sat by Pulse 99 99 Oximetry 11/10/20 11/10/20 11/10/20 18:49 18:52 18:53 Temperature Pulse Rate 85 88 88 Respiratory Rate Blood Pressure 118/65 107/60 Blood Pressure [Right] O2 Sat by Pulse 99 Oximetry 11/10/20 11/10/20 11/10/20 18:57 18:58 19:02 Temperature Pulse Rate 91 H 85 86 Respiratory Rate Blood Pressure 101/57 Blood Pressure [Right] O2 Sat by Pulse 100 100 Oximetry 11/10/20 11/10/2011/10/21 19:05 19:07 19:08 Temperature Pulse Rate 86 88 87 Respiratory Rate Blood Pressure 109/58 104/59 Blood Pressure [Right] O2 Sat by Pulse 100 Oximetry 11/10/20 11/10/20 11/10/20 19:12 19:15 19:17 Temperature 98.8 F Pulse Rate 89 87 91 H Respiratory 14 Rate Blood Pressure 110/72 Blood Pressure 110/72 [Right] O2 Sat by Pulse 100 100 Oximetry 11/10/20 11/10/20 11/10/20 19:19 19:22 19:23 Temperature Pulse Rate 93 H 87 86 Respiratory Rate Blood Pressure 114/66 109/63 Blood Pressure [Right] O2 Sat by Pulse 100 Oximetry 11/10/20 11/10/20 11/10/20 19:27 19:30 19:32 Temperature Pulse Rate 89 87 88 Respiratory Rate Blood Pressure 114/59 Blood Pressure [Right] O2 Sat by Pulse 100 100 Oximetry 11/10/20 11/10/20 11/10/20 19:37 19:42 19:47 Temperature Pulse Rate 96 H 84 78 Respiratory Rate Blood Pressure Blood Pressure [Right] O2 Sat by Pulse 100 100 100 Oximetry 11/10/20 11/10/20 11/10/20 19:48 19:49 19:52 Temperature Pulse Rate 55 L 85 105 H Respiratory Rate Blood Pressure 112/64 Blood Pressure [Right] O2 Sat by Pulse 88 99 Oximetry 11/10/20 11/10/20 11/10/20 19:57 20:02 20:06 Temperature Pulse Rate 92 H 92 H 84 Respiratory Rate Blood Pressure 137/83 Blood Pressure [Right] O2 Sat by Pulse 100 100 Oximetry 11/10/20 11/10/20 11/10/20 20:07 20:12 20:17 Temperature Pulse Rate 87 88 84 Respiratory Rate Blood Pressure Blood Pressure [Right] O2 Sat by Pulse 100 100 100 Oximetry 11/10/20 11/10/20 11/10/20 20:20 20:22 20:27 Temperature Pulse Rate 83 84 81 Respiratory Rate Blood Pressure 137/86 Blood Pressure [Right] O2 Sat by Pulse 100 100 Oximetry 11/10/20 11/10/20 11/10/20 20:32 20:37 20:42 Temperature Pulse Rate 84 85 81 Respiratory Rate Blood Pressure Blood Pressure [Right] O2 Sat by Pulse 100 100 100 Oximetry 11/10/20 11/10/20 11/10/20 20:47 20:51 20:52 Temperature Pulse Rate 83 83 82 Respiratory Rate Blood Pressure 135/86 Blood Pressure [Right] O2 Sat by Pulse 100 100 Oximetry 11/10/20 11/10/20 11/10/20 20:57 21:02 21:05 Temperature Pulse Rate 106 H 93 H 96 H Respiratory Rate Blood Pressure 137/86 Blood Pressure [Right] O2 Sat by Pulse 97 100 Oximetry 11/10/20 11/10/20 11/10/20 21:07 21:12 21:17 Temperature Pulse Rate 92 H 87 93 H Respiratory Rate Blood Pressure Blood Pressure [Right] O2 Sat by Pulse 100 100 100 Oximetry 11/10/20 11/10/20 11/10/20 21:20 21:22 21:27 Temperature Pulse Rate 95 H 103 H 88 Respiratory Rate Blood Pressure 141/91 Blood Pressure [Right] O2 Sat by Pulse 100 100 Oximetry 11/10/20 11/10/20 11/10/20 21:32 21:36 21:37 Temperature Pulse Rate 94 H 98 H 97 H Respiratory Rate Blood Pressure 138/86 Blood Pressure [Right] O2 Sat by Pulse 100 100 Oximetry 11/10/20 11/10/20 11/10/20 21:42 21:47 21:52 Temperature Pulse Rate 89 95 H 94 H Respiratory Rate Blood Pressure 128/90 Blood Pressure [Right] O2 Sat by Pulse 100 100 100 Oximetry 11/10/20 11/10/20 11/10/20 21:57 22:02 22:07 Temperature Pulse Rate 94 H 96 H 106 H Respiratory Rate Blood Pressure 138/85 Blood Pressure [Right] O2 Sat by Pulse 100 100 100 Oximetry 11/10/20 11/10/20 11/10/20 22:12 22:17 22:21 Temperature Pulse Rate 114 H 107 H 108 H Respiratory Rate Blood Pressure 136/95 Blood Pressure [Right] O2 Sat by Pulse 100 99 Oximetry 11/10/20 11/10/20 11/10/20 22:22 22:27 22:32 Temperature Pulse Rate 106 H 113 H 107 H Respiratory Rate Blood Pressure Blood Pressure [Right] O2 Sat by Pulse 99 99 95 Oximetry 11/10/20 11/10/20 11/10/20 22:35 22:37 22:42 Temperature Pulse Rate 102 H 113 H 111 H Respiratory Rate Blood Pressure 140/92 Blood Pressure [Right] O2 Sat by Pulse 100 100 Oximetry 11/10/20 11/10/20 11/10/20 22:47 22:48 22:51 Temperature Pulse Rate 112 H 112 H 111 H Respiratory Rate Blood Pressure 127/75 Blood Pressure [Right] O2 Sat by Pulse 92 91 Oximetry 11/10/20 11/10/20 11/10/20 22:52 22:57 23:01 Temperature Pulse Rate 105 H 97 H 112 H Respiratory Rate Blood Pressure Blood Pressure [Right] O2 Sat by Pulse 100 100 89 Oximetry 11/10/20 11/10/20 11/10/20 23:02 23:05 23:07 Temperature Pulse Rate 112 H 108 H 104 H Respiratory Rate Blood Pressure 134/88 Blood Pressure [Right] O2 Sat by Pulse 100 99 Oximetry 11/10/20 11/10/20 11/10/20 23:08 23:12 23:17 Temperature Pulse Rate 114 H 104 H 112 H Respiratory Rate Blood Pressure Blood Pressure [Right] O2 Sat by Pulse 87 100 98 Oximetry 11/10/20 11/10/20 11/10/20 23:21 23:22 23:25 Temperature 97.8 F Pulse Rate 109 H 106 H Respiratory Rate Blood Pressure 141/77 Blood Pressure [Right] O2 Sat by Pulse 100 Oximetry 11/10/20 11/10/20 11/10/20 23:27 23:32 23:36 Temperature Pulse Rate 105 H 107 H 109 H Respiratory Rate Blood Pressure 145/101 Blood Pressure [Right] O2 Sat by Pulse 100 100 Oximetry 11/10/20 11/10/20 11/10/20 23:37 23:42 23:47 Temperature Pulse Rate 106 H 107 H 113 H Respiratory Rate Blood Pressure Blood Pressure [Right] O2 Sat by Pulse 100 100 100 Oximetry 11/10/20 11/10/20 11/10/20 23:51 23:52 23:57 Temperature Pulse Rate 108 H 111 H 108 H Respiratory Rate Blood Pressure 143/82 Blood Pressure [Right] O2 Sat by Pulse 100 100 Oximetry 11/11/20 11/11/20 11/11/20 00:02 00:06 00:07 Temperature Pulse Rate 116 H 122 H 115 H Respiratory Rate Blood Pressure 143/90 Blood Pressure [Right] O2 Sat by Pulse 100 100 Oximetry 11/11/20 11/11/20 00:10 00:12 Temperature Pulse Rate 102 H 109 H Respiratory Rate Blood Pressure Blood Pressure [Right] O2 Sat by Pulse 78 L 100 Oximetry - Exam Breasts: normal Cardiovascular: Regular rate Lungs: Clear to auscultation, Normal air movement Abdomen: Present: normal appearance Vulva: both: normal Uterus: Present: fundal height below umbilicus FHR: category 2 Uterine Contraction Monitor Mode: External Cervical Dilatation: 9 Cervical Effacement Percentage: 100 station: -1 Uterine Contraction Frequency (min): 2-4 Uterine Contraction Duration: 60 Uterine Contraction Pattern: Regular Uterine Tone Measurement Phase: Contraction Uterine Contraction Intensity: Strong/Firm Extremities: edema - Labs Labs: Abnormal Labs 11/10/20 11/10/20 11/10/20 13:44 13:44 22:38 WBC 15.6 H RBC 3.21 L MCV 99 H MCH 34 H MCHC 35 H Creatinine 0.5 L Magnesium 4.30 H AST 80 H Lactate Dehydrogenase 613 H Urine WBC (Auto) Membranes Rupture 11/10/20 11/10/20 Unknown Unknown WBC RBC MCV MCH MCHC Creatinine Magnesium AST Lactate Dehydrogenase Urine WBC (Auto) 17.0 H Membranes Rupture Positive A Laboratory Results - last 24 hr 11/10/20 11/10/20 11/10/20 13:44 13:44 13:44 WBC 15.6 H RBC 3.21 L Hgb 11.1 Hct 31.8 MCV 99 H MCH 34 H MCHC 35 H RDW 13.5 Plt Count 183 Creatinine 0.5 L Estimated GFR > 60 Uric Acid 5.6 Magnesium AST 80 H ALT 29 Lactate Dehydrogenase 613 H Urine Color Urine Turbidity Urine pH Ur Specific [place] Urine Protein Urine Glucose (UA) Urine Ketones Urine Blood Urine Nitrite Urine Bilirubin Urine Urobilinogen Ur Leukocyte Esterase Urine WBC (Auto) Urine RBC (Auto) U Epithel Cells (Auto) Membranes Rupture Syphilis IgG Antibody Nonreactive Blood Type Antibody Screen 11/10/20 11/10/20 11/10/20 16:00 22:38 Unknown WBC RBC Hgb Hct MCV MCH MCHC RDW Plt Count Creatinine Estimated GFR Uric Acid Magnesium 4.30 H AST ALT Lactate Dehydrogenase Urine Color Urine Turbidity Urine pH Ur Specific [place] Urine Protein Urine Glucose (UA) Urine Ketones Urine Blood Urine Nitrite Urine Bilirubin Urine Urobilinogen Ur Leukocyte Esterase Urine WBC (Auto) Urine RBC (Auto) U Epithel Cells (Auto) Membranes Rupture Positive A Syphilis IgG Antibody Blood Type O POSITIVE Antibody Screen Negative 11/10/20 Unknown WBC RBC Hgb Hct MCV MCH MCHC RDW Plt Count Creatinine Estimated GFR Uric Acid Magnesium AST ALT Lactate Dehydrogenase Urine Color Yellow Urine Turbidity Clear Urine pH 6.0 Ur Specific [place] 1.011 Urine Protein 100 mg/dl Urine Glucose (UA) Neg Urine Ketones Neg Urine Blood Lg Urine Nitrite Neg Urine Bilirubin Neg Urine Urobilinogen < 2.0 Ur Leukocyte Esterase Mod Urine WBC (Auto) 17.0 H Urine RBC (Auto) 8.0 U Epithel Cells (Auto) 1.0 Membranes Rupture Syphilis IgG Antibody Blood Type Antibody Screen
[2020-11-11] MEDS: fentaNYL-BUPIV 2 MCG/ML-0.125% 200 MCG/100 ML BAG EPIDURAL SCH (02:55)
--- NOTE | 2020-11-11 04:47 | Event Note ---
Date: 11/11/20 Patient with question with a strong desire to attempt vaginal delivery. Discussed with the patient indications for operative delivery includes her lack of descent even with strong pushing effort by her that the due to the size may not descent. Discussed with the patient variable decelerations tracing not concerned that that may worsen with pushing. Patient understands but desires to Jail[place] attempt again for now her to see if vaginal deliveries possible.
--- NOTE | 2020-11-11 05:05 | Progress Note ---
Assessment and Plan Pt reexamined @ 0200 and found to be complete and zero station. Started pushing with good effort, baby tolerated pushing well. Patient pushed x2 hours, Dr. putnam updated. After [id number] of pushing, patient is exhausted and no longer pushing effectively. Will give patient short rest from pushing and then reevaluate with Dr. putnam. - Patient Problems (1) 38 weeks gestation of Current Visit: Yes Status: Acute (2) SROM (spontaneous rupture of membranes) Onset Date: ~11/10/20 Current Visit: Yes Status: Acute (3) Pre-eclampsia Current Visit: Yes Status: Acute Qualifiers: Trimester: third trimester Qualified Code(s): O14.93 - Unspecified pre- eclampsia, third trimester Subjective - Subjective Date of service: 11/11/20 Principal diagnosis: IUP @ 38+3; Labor, pre-e Interval history: EDC Confirmation: 11/22/2020 Past History : 1 Term Births: 0 Premature Births: 0 Living Children: 0 Para: 0 Mult. Births: 0 Prev : 0 Aborta: 0 Elect. Ab: 0 Spont. 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 % Sun Exposure: occasionally Family History Risk Factors: Family History of NV in females < 65 years old: no Family History of NV in males < 55 years old: no Dietary Counseling: yes Past Medical History: Reviewed history from 01/12/2014 and no changes required: Anemia Past Surgical History: Reviewed history from 01/12/2014 and no changes required: negative Family History Summary: MGM - Has Family History of Stomach Cancer - Entered On: 08/02/2020 MGM - Has Family History of Hypertension - Entered On: 08/02/2020 PGM - Has Family History of Diabetes - Entered On: 08/02/2020 MGM - Has Family History Breast Cancer - Entered On: 08/02/2020 General Comments - FH: breast CA/cx CA/endometrial CA-mgm DM-father,PGF/PGM Social History: Reviewed history from 01/12/2014 and no changes required: Patient is Smoking History: Patient has never smoked. lives in [place] +marijuana use"I cook with it, I use it in almost everyting but I don't smoke it. I use it as a herb" Past Medical History Anesthesia Complications: negative Anemia: positive Autoimmune Disorder: negative Bleeding Disorder: negative Blood Transfusions: negative Breast Disease: negative Diabetes: negative Heart Disease: negative Hypertension: negative Hepatitis/Liver Disease: negative Kidney Disease/UTI: negative Neurologic/Epilepsy/Migraines: negative Phlebitis/Varicosities: negative Psychiatric: negative Pulmonary Disease/Asthma: negative Thyroid Disease: negative Hospitalizations: negative Surgery (Non-computer graphic artist): negative Abnormal PAP: positive, HPV + 2017 MAL Exposure: negative Infertility: negative Uterine Anomaly: negative Uterine Surgery (not C/S): negative Other Gynecologic Problems: negative Social Hx: Patient is Smoking History: Patient has never smoked. lives in [place] +marijuana use"I cook with it, I use it in almost everyting but I don't smoke it. I use it as a herb" Infection History Hx of STD: HPV HIV Risk Eval: no Hepatitis B Risk Eval: low risk Personal hx. of genital herpes: no Partner hx. of genital herpes: no Rash, Viral, or Febrile illness since last LMP? no Varicella/Chicken Pox Status: Immunized TB Risk: no Genetic History ADVANCED MATERNAL AGE Congenital Heart Defect: Mom: no Dad: no Delmi Disease: Mom: no Dad: no Thalassemia Mom: no Dad: no Neural Tube Defect Mom: no Dad: no Down's Syndrome Mom: no Dad: no [place]-Sachs Mom: no Dad: no Sickle Cell Disease/Trait Mom: no Dad: no Hemophilia Mom: no Dad: no Muscular Dystrophy Mom: no Dad: no Cystic Fibrosis Mom: no Dad: no [place] Chorea Mom: no Dad: no Mental Retardation Mom: no Dad: no Fragile X Mom: no Dad: no Other Genetic/Chromosomal Disorder Mom: no Dad: no Child w/other defect Mom: no Dad: no Enviromental Exposures Enviromental Exposures Reviewed Xray Exposure: no Medication, drug, or alcohol use since LMP: no Chemical/Other Exposure: no Exposure to Cat Liter: yes Hx of Parvovirus (Fifth Disease): no Occupational Exposure to Children: none Active Medications (reviewed today): PNV Current Allergies (reviewed today): No known allergies Patient reports: no new complaints (comfortable with epidural, vaginal pressure with ctx), no vaginal bleeding Objective - Vital Signs Vital Signs: Vital Signs - 12hr 11/10/20 11/10/20 11/10/20 17:07 17:11 17:12 Temperature 99.0 F Pulse Rate 86 106 H Respiratory Rate Blood Pressure Blood Pressure [Right] O2 Sat by Pulse 98 98 Oximetry 11/10/20 11/10/20 11/10/20 17:17 17:22 17:27 Temperature Pulse Rate 101 H 104 H 94 H Respiratory Rate Blood Pressure Blood Pressure [Right] O2 Sat by Pulse 98 97 98 Oximetry 11/10/20 11/10/20 11/10/20 17:32 17:37 17:42 Temperature Pulse Rate 95 H 98 H 116 H Respiratory Rate Blood Pressure Blood Pressure [Right] O2 Sat by Pulse 100 98 96 Oximetry 11/10/20 11/10/20 11/10/20 17:47 17:52 17:57 Temperature Pulse Rate 102 H 101 H 107 H Respiratory Rate Blood Pressure Blood Pressure [Right] O2 Sat by Pulse 98 99 100 Oximetry 11/10/20 11/10/20 11/10/20 18:02 18:07 18:12 Temperature Pulse Rate 97 H 99 H 104 H Respiratory Rate Blood Pressure Blood Pressure [Right] O2 Sat by Pulse 99 99 100 Oximetry 11/10/20 11/10/20 11/10/20 18:17 18:22 18:24 Temperature Pulse Rate 107 H 101 H 101 H Respiratory Rate Blood Pressure 153/94 Blood Pressure [Right] O2 Sat by Pulse 99 99 Oximetry 11/10/20 11/10/20 11/10/20 18:27 18:28 18:32 Temperature Pulse Rate 105 H 111 H 91 H Respiratory Rate Blood Pressure 134/87 Blood Pressure [Right] O2 Sat by Pulse 99 99 Oximetry 11/10/20 11/10/20 11/10/20 18:34 18:37 18:38 Temperature Pulse Rate 92 H 109 H 99 H Respiratory Rate Blood Pressure 133/76 141/80 Blood Pressure [Right] O2 Sat by Pulse 100 Oximetry 11/10/20 11/10/20 11/10/20 18:42 18:45 18:47 Temperature Pulse Rate 98 H 90 89 Respiratory Rate Blood Pressure 115/62 Blood Pressure [Right] O2 Sat by Pulse 99 99 Oximetry 11/10/20 11/10/20 11/10/20 18:49 18:52 18:53 Temperature Pulse Rate 85 88 88 Respiratory Rate Blood Pressure 118/65 107/60 Blood Pressure [Right] O2 Sat by Pulse 99 Oximetry 11/10/20 11/10/20 11/10/20 18:57 18:58 19:02 Temperature Pulse Rate 91 H 85 86 Respiratory Rate Blood Pressure 101/57 Blood Pressure [Right] O2 Sat by Pulse 100 100 Oximetry 11/10/20 11/10/20 11/10/20 19:05 19:07 19:08 Temperature Pulse Rate 86 88 87 Respiratory Rate Blood Pressure 109/58 104/59 Blood Pressure [Right] O2 Sat by Pulse 100 Oximetry 11/10/20 11/10/20 11/10/20 19:12 19:15 19:17 Temperature 98.8 F Pulse Rate 89 87 91 H Respiratory 14 Rate Blood Pressure 110/72 Blood Pressure 110/72 [Right] O2 Sat by Pulse 100 100 Oximetry 11/10/20 11/10/20 11/10/20 19:19 19:22 19:23 Temperature Pulse Rate 93 H 87 86 Respiratory Rate Blood Pressure 114/66 109/63 Blood Pressure [Right] O2 Sat by Pulse 100 Oximetry 11/10/20 11/10/20 11/10/20 19:27 19:30 19:32 Temperature Pulse Rate 89 87 88 Respiratory Rate Blood Pressure 114/59 Blood Pressure [Right] O2 Sat by Pulse 100 100 Oximetry 11/10/20 11/10/20 11/10/20 19:37 19:42 19:47 Temperature Pulse Rate 96 H 84 78 Respiratory Rate Blood Pressure Blood Pressure [Right] O2 Sat by Pulse 100 100 100 Oximetry 11/10/20 11/10/20 11/10/20 19:48 19:49 19:52 Temperature Pulse Rate 55 L 85 105 H Respiratory Rate Blood Pressure 112/64 Blood Pressure [Right] O2 Sat by Pulse 88 99 Oximetry 11/10/20 11/10/20 11/10/20 19:57 20:02 20:06 Temperature Pulse Rate 92 H 92 H 84 Respiratory Rate Blood Pressure 137/83 Blood Pressure [Right] O2 Sat by Pulse 100 100 Oximetry 11/10/20 11/10/20 11/10/20 20:07 20:12 20:17 Temperature Pulse Rate 87 88 84 Respiratory Rate Blood Pressure Blood Pressure [Right] O2 Sat by Pulse 100 100 100 Oximetry 11/10/20 11/10/20 11/10/20 20:20 20:22 20:27 Temperature Pulse Rate 83 84 81 Respiratory Rate Blood Pressure 137/86 Blood Pressure [Right] O2 Sat by Pulse 100 100 Oximetry 11/10/20 11/10/20 11/10/20 20:32 20:37 20:42 Temperature Pulse Rate 84 85 81 Respiratory Rate Blood Pressure Blood Pressure [Right] O2 Sat by Pulse 100 100 100 Oximetry 11/10/20 11/10/20 11/10/20 20:47 20:51 20:52 Temperature Pulse Rate 83 83 82 Respiratory Rate Blood Pressure 135/86 Blood Pressure [Right] O2 Sat by Pulse 100 100 Oximetry 11/10/20 11/10/20 11/10/20 20:57 21:02 21:05 Temperature Pulse Rate 106 H 93 H 96 H Respiratory Rate Blood Pressure 137/86 Blood Pressure [Right] O2 Sat by Pulse 97 100 Oximetry 11/10/20 11/10/20 11/10/20 21:07 21:12 21:17 Temperature Pulse Rate 92 H 87 93 H Respiratory Rate Blood Pressure Blood Pressure [Right] O2 Sat by Pulse 100 100 100 Oximetry 11/10/20 11/10/20 11/10/20 21:20 21:22 21:27 Temperature Pulse Rate 95 H 103 H 88 Respiratory Rate Blood Pressure 141/91 Blood Pressure [Right] O2 Sat by Pulse 100 100 Oximetry 11/10/20 11/10/20 11/10/20 21:32 21:36 21:37 Temperature Pulse Rate 94 H 98 H 97 H Respiratory Rate Blood Pressure 138/86 Blood Pressure [Right] O2 Sat by Pulse 100 100 Oximetry 11/10/20 11/10/20 11/10/20 21:42 21:47 21:52 Temperature Pulse Rate 89 95 H 94 H Respiratory Rate Blood Pressure 128/90 Blood Pressure [Right] O2 Sat by Pulse 100 100 100 Oximetry 11/10/20 11/10/20 11/10/20 21:57 22:02 22:07 Temperature Pulse Rate 94 H 96 H 106 H Respiratory Rate Blood Pressure 138/85 Blood Pressure [Right] O2 Sat by Pulse 100 100 100 Oximetry 11/10/20 11/10/20 11/10/20 22:12 22:17 22:21 Temperature Pulse Rate 114 H 107 H 108 H Respiratory Rate Blood Pressure 136/95 Blood Pressure [Right] O2 Sat by Pulse 100 99 Oximetry 11/10/20 11/10/20 11/10/20 22:22 22:27 22:32 Temperature Pulse Rate 106 H 113 H 107 H Respiratory Rate Blood Pressure Blood Pressure [Right] O2 Sat by Pulse 99 99 95 Oximetry 11/10/20 11/10/20 11/10/20 22:35 22:37 22:42 Temperature Pulse Rate 102 H 113 H 111 H Respiratory Rate Blood Pressure 140/92 Blood Pressure [Right] O2 Sat by Pulse 100 100 Oximetry 11/10/20 11/10/20 11/10/20 22:47 22:48 22:51 Temperature Pulse Rate 112 H 112 H 111 H Respiratory Rate Blood Pressure 127/75 Blood Pressure [Right] O2 Sat by Pulse 92 91 Oximetry 11/10/20 11/10/20 11/10/20 22:52 22:57 23:01 Temperature Pulse Rate 105 H 97 H 112 H Respiratory Rate Blood Pressure Blood Pressure [Right] O2 Sat by Pulse 100 100 89 Oximetry 11/10/20 11/10/20 11/10/20 23:02 23:05 23:07 Temperature Pulse Rate 112 H 108 H 104 H Respiratory Rate Blood Pressure 134/88 Blood Pressure [Right] O2 Sat by Pulse 100 99 Oximetry 11/10/20 11/10/20 11/10/20 23:08 23:12 23:17 Temperature Pulse Rate 114 H 104 H 112 H Respiratory Rate Blood Pressure Blood Pressure [Right] O2 Sat by Pulse 87 100 98 Oximetry 11/10/20 11/10/20 11/10/20 23:21 23:22 23:25 Temperature 97.8 F Pulse Rate 109 H 106 H Respiratory Rate Blood Pressure 141/77 Blood Pressure [Right] O2 Sat by Pulse 100 Oximetry 11/10/20 11/10/20 11/10/20 23:27 23:32 23:36 Temperature Pulse Rate 105 H 107 H 109 H Respiratory Rate Blood Pressure 145/101 Blood Pressure [Right] O2 Sat by Pulse 100 100 Oximetry 11/10/20 11/10/20 11/10/20 23:37 23:42 23:47 Temperature Pulse Rate 106 H 107 H 113 H Respiratory Rate Blood Pressure Blood Pressure [Right] O2 Sat by Pulse 100 100 100 Oximetry 11/10/20 11/10/20 11/10/20 23:51 23:52 23:57 Temperature Pulse Rate 108 H 111 H 108 H Respiratory Rate Blood Pressure 143/82 Blood Pressure [Right] O2 Sat by Pulse 100 100 Oximetry 11/11/20 11/11/20 11/11/20 00:02 00:06 00:07 Temperature Pulse Rate 116 H 122 H 115 H Respiratory Rate Blood Pressure 143/90 Blood Pressure [Right] O2 Sat by Pulse 100 100 Oximetry 11/11/20 11/11/20 11/11/20 00:10 00:12 00:17 Temperature Pulse Rate 102 H 109 H 103 H Respiratory Rate Blood Pressure Blood Pressure [Right] O2 Sat by Pulse 78 L 100 100 Oximetry 11/11/20 11/11/20 11/11/20 00:22 00:27 00:32 Temperature Pulse Rate 103 H 102 H 105 H Respiratory Rate Blood Pressure Blood Pressure [Right] O2 Sat by Pulse 100 100 100 Oximetry 11/11/20 11/11/20 11/11/20 00:37 00:42 00:47 Temperature Pulse Rate 98 H 100 H 109 H Respiratory Rate Blood Pressure Blood Pressure [Right] O2 Sat by Pulse 100 100 99 Oximetry 11/11/20 11/11/20 11/11/20 00:52 00:57 01:00 Temperature Pulse Rate 104 H 112 H 111 H Respiratory Rate Blood Pressure 135/102 Blood Pressure [Right] O2 Sat by Pulse 100 100 Oximetry 11/11/20 11/11/20 11/11/20 01:02 01:06 01:07 Temperature Pulse Rate 109 H 101 H 99 H Respiratory Rate Blood Pressure 139/94 Blood Pressure [Right] O2 Sat by Pulse 100 100 Oximetry 11/11/20 11/11/20 11/11/20 01:12 01:17 01:20 Temperature Pulse Rate 107 H 107 H 104 H Respiratory Rate Blood Pressure 131/90 Blood Pressure [Right] O2 Sat by Pulse 100 100 Oximetry 11/11/20 11/11/20 11/11/20 01:22 01:27 01:32 Temperature Pulse Rate 100 H 101 H 103 H Respiratory Rate Blood Pressure Blood Pressure [Right] O2 Sat by Pulse 100 100 100 Oximetry 11/11/20 11/11/20 11/11/20 01:36 01:37 01:42 Temperature Pulse Rate 100 H 103 H 101 H Respiratory Rate Blood Pressure 135/93 Blood Pressure [Right] O2 Sat by Pulse 100 100 Oximetry 11/11/20 11/11/20 11/11/20 01:47 01:50 01:52 Temperature Pulse Rate 117 H 107 H 103 H Respiratory Rate Blood Pressure 142/98 Blood Pressure [Right] O2 Sat by Pulse 100 100 Oximetry 11/11/20 11/11/20 11/11/20 01:57 02:02 02:05 Temperature Pulse Rate 105 H 103 H 105 H Respiratory Rate Blood Pressure 149/97 Blood Pressure [Right] O2 Sat by Pulse 100 100 Oximetry 11/11/20 11/11/20 11/11/20 02:07 02:10 02:12 Temperature Pulse Rate 113 H 71 131 H Respiratory Rate Blood Pressure Blood Pressure [Right] O2 Sat by Pulse 100 91 100 Oximetry 11/11/20 11/11/20 11/11/20 02:15 02:17 02:21 Temperature Pulse Rate 115 H 109 H 103 H Respiratory Rate Blood Pressure Blood Pressure [Right] O2 Sat by Pulse 0 L 100 87 Oximetry 11/11/20 11/11/20 11/11/20 02:22 02:27 02:29 Temperature Pulse Rate 99 H 105 H 60 Respiratory Rate Blood Pressure Blood Pressure [Right] O2 Sat by Pulse 100 100 91 Oximetry 11/11/20 11/11/20 11/11/20 02:33 02:34 02:35 Temperature Pulse Rate 95 H 72 101 H Respiratory Rate Blood Pressure 138/95 Blood Pressure [Right] O2 Sat by Pulse 100 86 Oximetry 11/11/20 11/11/20 11/11/20 02:38 02:43 02:48 Temperature Pulse Rate 104 H 123 H 104 H Respiratory Rate Blood Pressure Blood Pressure [Right] O2 Sat by Pulse 100 100 100 Oximetry 11/11/20 11/11/20 11/11/20 02:50 02:53 02:55 Temperature Pulse Rate 76 104 H 41 L Respiratory Rate Blood Pressure Blood Pressure [Right] O2 Sat by Pulse 89 100 93 Oximetry 11/11/20 11/11/20 11/11/20 02:58 03:02 03:03 Temperature Pulse Rate 127 H 80 Respiratory Rate Blood Pressure Blood Pressure [Right] O2 Sat by Pulse 100 80 L 100 Oximetry 11/11/20 11/11/20 11/11/20 03:07 03:09 03:13 Temperature Pulse Rate 110 H 45 L Respiratory Rate Blood Pressure Blood Pressure [Right] O2 Sat by Pulse 99 97 100 Oximetry 11/11/20 11/11/20 11/11/20 03:14 03:19 03:20 Temperature Pulse Rate 115 H 97 H Respiratory Rate Blood Pressure Blood Pressure [Right] O2 Sat by Pulse 100 93 89 Oximetry 11/11/20 11/11/20 11/11/20 03:21 03:24 03:25 Temperature Pulse Rate 120 H 117 H Respiratory Rate Blood Pressure 164/95 Blood Pressure [Right] O2 Sat by Pulse 100 88 Oximetry 11/11/20 11/11/20 11/11/20 03:29 03:31 03:34 Temperature Pulse Rate 118 H 107 H 113 H Respiratory Rate Blood Pressure Blood Pressure [Right] O2 Sat by Pulse 100 100 100 Oximetry 11/11/20 11/11/20 11/11/20 03:35 03:38 03:39 Temperature Pulse Rate 134 H 113 H Respiratory Rate Blood Pressure 167/85 Blood Pressure [Right] O2 Sat by Pulse 100 100 Oximetry 11/11/20 11/11/20 11/11/20 03:44 03:46 03:49 Temperature Pulse Rate 115 H 107 H Respiratory Rate Blood Pressure Blood Pressure [Right] O2 Sat by Pulse 100 75 L 100 Oximetry 11/11/20 11/11/20 11/11/20 03:52 03:53 03:54 Temperature Pulse Rate 102 H 131 H 117 H Respiratory Rate Blood Pressure 159/91 Blood Pressure [Right] O2 Sat by Pulse 100 96 Oximetry 11/11/20 11/11/20 11/11/20 03:59 04:04 04:06 Temperature Pulse Rate 112 H 138 H 107 H Respiratory Rate Blood Pressure 165/93 Blood Pressure [Right] O2 Sat by Pulse 100 100 Oximetry 11/11/20 11/11/20 11/11/20 04:10 04:16 04:18 Temperature Pulse Rate 110 H 115 H 150 H Respiratory Rate Blood Pressure Blood Pressure [Right] O2 Sat by Pulse 100 99 100 Oximetry 11/11/20 11/11/20 11/11/20 04:20 04:21 04:25 Temperature Pulse Rate 123 H 88 132 H Respiratory Rate Blood Pressure 178/90 Blood Pressure [Right] O2 Sat by Pulse 100 100 Oximetry 11/11/20 11/11/2011/11/21 04:26 04:31 04:36 Temperature Pulse Rate 101 H 107 H 119 H Respiratory Rate Blood Pressure Blood Pressure [Right] O2 Sat by Pulse 100 100 100 Oximetry 11/11/20 11/11/20 11/11/20 04:41 04:46 04:51 Temperature Pulse Rate 118 H 117 H 107 H Respiratory Rate Blood Pressure 138/85 Blood Pressure [Right] O2 Sat by Pulse 100 100 100 Oximetry 11/11/20 04:56 Temperature Pulse Rate 108 H Respiratory Rate Blood Pressure Blood Pressure [Right] O2 Sat by Pulse 100 Oximetry - Exam Cervical Dilatation: 10 Cervical Effacement Percentage: 100 station: +1 - Labs Labs: Abnormal Labs 11/10/20 11/10/20 11/10/20 13:44 13:44 22:38 WBC 15.6 H RBC 3.21 L MCV 99 H MCH 34 H MCHC 35 H Creatinine 0.5 L Magnesium 4.30 H AST 80 H Lactate Dehydrogenase 613 H Urine WBC (Auto) Membranes Rupture 11/10/20 11/10/20 Unknown Unknown WBC RBC MCV MCH MCHC Creatinine Magnesium AST Lactate Dehydrogenase Urine WBC (Auto) 17.0 H Membranes Rupture Positive A Laboratory Results - last 24 hr 11/10/20 11/10/20 11/10/20 13:44 13:44 13:44 WBC 15.6 H RBC 3.21 L Hgb 11.1 Hct 31.8 MCV 99 H MCH 34 H MCHC 35 H RDW 13.5 Plt Count 183 Creatinine 0.5 L Estimated GFR > 60 Uric Acid 5.6 Magnesium AST 80 H ALT 29 Lactate Dehydrogenase 613 H Urine Color Urine Turbidity Urine pH Ur Specific [place] Urine Protein Urine Glucose (UA) Urine Ketones Urine Blood Urine Nitrite Urine Bilirubin Urine Urobilinogen Ur Leukocyte Esterase Urine WBC (Auto) Urine RBC (Auto) U Epithel Cells (Auto) Membranes Rupture Syphilis IgG Antibody Nonreactive Blood Type Antibody Screen 11/10/20 11/10/20 11/10/20 16:00 22:38 Unknown WBC RBC Hgb Hct MCV MCH MCHC RDW Plt Count Creatinine Estimated GFR Uric Acid Magnesium 4.30 H AST ALT Lactate Dehydrogenase Urine Color Urine Turbidity Urine pH Ur Specific [place] Urine Protein Urine Glucose (UA) Urine Ketones Urine Blood Urine Nitrite Urine Bilirubin Urine Urobilinogen Ur Leukocyte Esterase Urine WBC (Auto) Urine RBC (Auto) U Epithel Cells (Auto) Membranes Rupture Positive A Syphilis IgG Antibody Blood Type O POSITIVE Antibody Screen Negative 11/10/20 Unknown WBC RBC Hgb Hct MCV MCH MCHC RDW Plt Count Creatinine Estimated GFR Uric Acid Magnesium AST ALT Lactate Dehydrogenase Urine Color Yellow Urine Turbidity Clear Urine pH 6.0 Ur Specific [place] 1.011 Urine Protein 100 mg/dl Urine Glucose (UA) Neg Urine Ketones Neg Urine Blood Lg Urine Nitrite Neg Urine Bilirubin Neg Urine Urobilinogen < 2.0 Ur Leukocyte Esterase Mod Urine WBC (Auto) 17.0 H Urine RBC (Auto) 8.0 U Epithel Cells (Auto) 1.0 Membranes Rupture Syphilis IgG Antibody Blood Type Antibody Screen
[2020-11-11] MEDS ORDERED: ceFAZolin/Water 2 GM/20 ML 2 GM/20 ML SYRINGE IV ONE (05:58)
[2020-11-11] MEDS ORDERED: FAMOTIDINE 20 MG/2 ML INJ IV ONE ×2 (05:58→05:59)
[2020-11-11] MEDS ORDERED: METOCLOPRAMIDE 10 MG/2 ML INJ ONE (05:58)
[2020-11-11] MEDS ORDERED: BICITRA ORAL LIQD 30ML ONE (05:58)
[2020-11-11] MEDS ORDERED: METOCLOPRAMIDE 10 MG/2 ML INJ IV ONE (05:59)
[2020-11-11] MEDS ORDERED: BICITRA ORAL LIQD 30ML PO ONE (05:59)
[2020-11-11] MEDS ORDERED: ceFAZolin/Water 2 GM/20 ML 2 GM/20 ML SYRINGE IV NR (06:00)
[2020-11-11] MEDS ORDERED: LACTATED RINGERS 1,000 ML IV SCH (06:00)
--- NOTE | 2020-11-11 06:03 | Event Note ---
Date: 11/11/20 pt desires to proceed with primary c/s for suspected macrosomia, pre-op orders in EMR. Consent signed.
[2020-11-11] MEDS ORDERED: ceFAZolin/STERILE WATER 2 GM/20 ML SYRINGE IV ONE (06:18)
[2020-11-11] MEDS ORDERED: SODIUM CHLORIDE 0.9% IRR 1,500 ML BOTTLE IR ONE (06:39)
[2020-11-11] MEDS ORDERED: WATER FOR IRRIG STERILE 1,500 ML BOTTLE IR ONE (06:39)
[2020-11-11] MEDS ORDERED: LIDOCAINE 2%/EPINEPHRINE 1:200,000 VIAL (20 ML) INFILTRATI ONE (06:44)
[2020-11-11] MEDS ORDERED: LIDOCAINE MPF (2%) 20 MG/1 ML VIAL 5 ML ONE (06:44)
[2020-11-11] MEDS ORDERED: NALOXONE 0.4 MG/1 ML INJ IV PRN (06:59)
[2020-11-11] MEDS ORDERED: HYDROmorphone 1 MG/1 ML INJ IV PRN (06:59)
--- NOTE | 2020-11-11 06:59 | Anesthesia Day of Surgery ---
Anesthesia Day of Surgery - Day of Surgery Patient Examined: Yes Patient H&P Reviewed: Yes Patient is NPO: Yes Beta Blockers: No Cardiac Clearance: No Pulmonary Clearance: No Williams's Test: N/A
[2020-11-11] MEDS ORDERED: BUPIVACAINE/PF (0.5%) 5 MG/1 ML 30 ML VIAL INFILTRATI ONE (07:05)
[2020-11-11] MEDS ORDERED: OXYTOCIN 10 UNIT/1 ML INJ ONE (07:05)
[2020-11-11] MEDS ORDERED: KETOROLAC 30 MG/1 ML INJ ONE (07:05)
[2020-11-11] MEDS ORDERED: dexAMETHasone 20 MG/5 ML VIAL ONE (07:05)
[2020-11-11] MEDS ORDERED: ONDANSETRON 4 MG/2 ML INJ IV PRN (07:30)
[2020-11-11] MEDS ORDERED: PROMETHAZINE 25 MG TAB PO PRN (07:30)
[2020-11-11] MEDS ORDERED: PROMETHAZINE 25 MG RECT SUPP PR PRN (07:30)
--- NOTE | 2020-11-11 07:47 | Operative Report ---
Operative Report Operative Report: Date of procedure: November 06, 2020 Pre-operative diagnosis: Intrauterine at 38 weeks with preeclampsia and failure of descent and nonreassuring heart tracing Post-operative diagnosis: Same Procedure name(s): Primary low transverse section Surgeon: Mauro Abbott MD Customer Sales Distributor: Noelle Cartagena, certified nurse industrial editor Anesthesia: Epidural QBL: 1300 cc Complications: None Findings: Patient with a normal uterus tubes and ovaries bilaterally female weight 9 pounds 4 ounces Apgars 8 at 1 minute and 9 at 5 minutes Specimen(s): None Indication: Patient reached complete dilatation but had pushed for greater than 2 hours without success in the past +2 station most likely due to large size of her infant Procedure: The patient was brought to the operating room. Her epidural was dosed was placed without any complications. She was then placed in left lateral tilt. Prepped and draped in the usual sterile manner. After testing for adequate anesthesia level, a Pfannenstiel incision was made. This incision was taken down to the fascia. The fascia was then nicked in the midline. This incision was extended out laterally with Emanuel scissors. The fascia was then sharply and bluntly from the underlying rectus muscles. The rectus muscles were bluntly and sharply . The peritoneum was then entered with the contour path tape mill operator's fingers. This incision was spread vertically with care not to damage the bladder below. The Clark self-retaining tractor was then placed without any difficulty. The bladder flap was then formed sharply and bluntly with Metzenbaum scissors. A transverse incision was made in lower uterine segment. This incision was extended laterally with the operators fingers. The amniotic sac was then entered bluntly with the contour path tape mill operator's fingers. The infant was delivered from the vertex position. Bulb suction on the mother's abdomen. Cord was double clamped and cut. The infant was then passed to the nursery personnel who were in attendance. The above scores were given by the nursery personnel. The placenta was then bluntly removed. The uterus was then externalized and wiped clean the remaining products. The uterine incision was closed in layers. The first incision was closed in a locking manner using 0 Vicryl. This was followed by imbricating stitch also with 0 Vicryl. This closure was hemostatic. The bladder flap was copiously irrigated and found to be hemostatic. The pelvis was copiously irrigated and found to be hemostatic. The uterus was then placed back to the patient's abdomen. The retractors were removed. The rectus muscles were inspected and found to be hemostatic. The fascia was then closed in a running manner using 0 Vicryl. This incision was hemostatic irrigation Bovie. The skin was reapproximated with 4-0 Vicryl subcuticularly. The patient tolerated procedure well. Her urine was slightly blood-tinged. The was admitted to the well baby nursery. The patient was accompanied to recovery room in good condition. Instrument count correct times 3.
[2020-11-11] MEDS: LACTATED RINGERS 1,000 ML IV SCH (08:18)
[2020-11-11] MEDS: MAGNESIUM SULFATE 40GM/1000ML 40 GM/1,000 ML BAG IV SCH (08:31)
--- NOTE | 2020-11-11 09:33 | Progress Note ---
Assessment and Plan RN @bedside starting Magnesium Sulfate postoperatively; Pt with facial edema and BP stable now. Pt denies all complaints. Preeclampsia Dx, associated risks, and POC postoperatively reviewed with pt and RN. All questions addressed. - Patient Problems (1) delivery delivered Current Visit: Yes Status: Acute (2) Pre-eclampsia Current Visit: Yes Status: Acute Qualifiers: Trimester: third trimester Qualified Code(s): O14.93 - Unspecified pre- eclampsia, third trimester Plan to address problem: Mag x 24hrs postoperative pathway continue to watch closely for changes in status Subjective - Subjective Date of service: 11/11/20 Principal diagnosis: Postop Csection; pre-e Patient reports: pain well controlled, other (pate draining clear yellow urine to gravity) [place]: doing well, nursing well Objective - Vital Signs Latest vital signs: Vital Signs Temp Pulse Resp BP BP Pulse Ox 11/11/20 09:14 86 130/77 11/11/20 09:12 87 97 11/11/20 09:09 90 130/77 11/11/20 09:07 89 97 11/11/20 09:04 86 133/77 11/11/20 09:02 88 97 11/11/20 08:59 89 132/79 11/11/20 08:57 90 96 11/11/20 08:54 87 129/77 11/11/20 08:52 88 98 11/11/20 08:49 86 130/75 11/11/20 08:47 87 98 11/11/20 08:44 86 135/81 94 11/11/20 08:42 87 98 11/11/20 08:39 84 118/60 11/11/20 08:37 92 H 98 11/11/20 08:34 89 148/71 11/11/20 08:32 94 H 98 11/11/20 08:29 91 H 128/67 11/11/20 08:27 92 H 97 11/11/20 08:24 93 H 124/68 11/11/20 08:22 93 H 97 11/11/20 08:19 86 129/69 11/11/20 08:17 87 97 11/11/20 08:14 92 H 129/65 11/11/20 08:12 93 H 98 11/11/20 08:09 92 H 128/58 11/11/20 08:07 88 99 11/11/20 08:04 91 H 131/70 11/11/20 08:02 90 98 11/11/20 07:59 94 H 142/69 11/11/20 07:57 98 H 99 11/11/20 07:52 96 H 100 11/11/20 07:48 93 H 124/69 11/11/20 07:47 95 H 99 11/11/20 07:46 98.4 F 99 H 18 124/69 99 11/11/20 06:06 111 H 163/101 100 11/11/20 06:01 112 H 100 11/11/20 05:56 116 H 100 11/11/20 05:51 110 H 162/110 100 11/11/20 05:46 111 H 99 11/11/20 05:41 113 H 97 11/11/20 05:39 112 H 98 11/11/20 05:36 117 H 161/95 99 11/11/20 05:31 116 H 100 11/11/20 05:26 111 H 100 11/11/20 05:21 117 H 100 11/11/20 05:20 111 H 155/93 11/11/20 05:16 111 H 100 11/11/20 05:11 108 H 100 11/11/20 05:07 105 H 153/96 11/11/20 05:06 106 H 99 11/11/20 05:01 108 H 100 11/11/20 04:59 99.0 F 11/11/20 04:56 108 H 100 11/11/20 04:51 107 H 138/85 100 11/11/20 04:46 117 H 100 11/11/20 04:41 118 H 100 11/11/20 04:36 119 H 100 11/11/20 04:31 107 H 100 11/11/20 04:26 101 H 100 11/11/20 04:25 132 H 100 11/11/20 04:21 88 100 11/11/20 04:20 123 H 178/90 11/11/20 04:18 150 H 100 11/11/20 04:16 115 H 99 11/11/20 04:10 110 H 100 11/11/20 04:06 107 H 165/93 11/11/20 04:04 138 H 100 11/11/20 03:59 112 H 100 11/11/20 03:54 117 H 96 06/25/21 03:53 131 H 100 11/11/20 03:52 102 H 159/91 11/11/20 03:49 107 H 100 11/11/20 03:46 75 L 11/11/20 03:44 115 H 100 11/11/20 03:39 113 H 100 11/11/20 03:38 100 11/11/20 03:35 134 H 167/85 11/11/20 03:34 113 H 100 11/11/20 03:31 107 H 100 11/11/20 03:29 118 H 100 11/11/20 03:25 88 11/11/20 03:24 117 H 100 11/11/20 03:21 120 H 164/95 11/11/20 03:20 89 11/11/20 03:19 97 H 93 11/11/20 03:14 115 H 100 11/11/20 03:13 100 11/11/20 03:09 45 L 97 11/11/20 03:07 110 H 99 11/11/20 03:03 100 11/11/20 03:02 80 80 L 11/11/20 02:58 127 H 100 11/11/20 02:55 41 L 93 11/11/20 02:53 104 H 100 11/11/20 02:50 76 89 11/11/20 02:48 104 H 100 11/11/20 02:43 123 H 100 11/11/20 02:38 104 H 100 11/11/20 02:35 101 H 138/95 11/11/20 02:34 72 86 11/11/20 02:33 95 H 100 11/11/20 02:29 60 91 11/11/20 02:27 105 H 100 11/11/20 02:22 99 H 100 11/11/20 02:21 103 H 87 11/11/20 02:17 109 H 100 11/11/20 02:15 115 H 0 L 11/11/20 02:12 131 H 100 11/11/20 02:10 71 91 11/11/20 02:07 113 H 100 11/11/20 02:05 105 H 149/97 11/11/20 02:02 103 H 100 11/11/20 01:57 105 H 100 11/11/20 01:52 103 H 100 11/11/20 01:50 107 H 142/98 11/11/20 01:47 117 H 100 11/11/20 01:42 101 H 100 11/11/20 01:37 103 H 100 11/11/20 01:36 100 H 135/93 11/11/20 01:32 103 H 100 11/11/20 01:27 101 H 100 11/11/20 01:22 100 H 100 11/11/20 01:20 104 H 131/90 11/11/20 01:17 107 H 100 11/11/20 01:12 107 H 100 11/11/20 01:07 99 H 100 11/11/20 01:06 101 H 139/94 11/11/20 01:02 109 H 100 11/11/20 01:00 111 H 135/102 11/11/20 00:57 112 H 100 11/11/20 00:52 104 H 100 11/11/20 00:47 109 H 99 11/11/20 00:42 100 H 100 11/11/20 00:37 98 H 100 11/11/20 00:32 105 H 100 11/11/20 00:27 102 H 100 11/11/20 00:22 103 H 100 11/11/20 00:17 103 H 100 11/11/20 00:12 109 H 100 11/11/20 00:10 102 H 78 L 11/11/20 00:07 115 H 100 11/11/20 00:06 122 H 143/90 11/11/20 00:02 116 H 100 11/10/20 23:57 108 H 100 11/10/20 23:52 111 H 100 11/10/20 23:51 108 H 143/82 11/10/20 23:47 113 H 100 11/10/20 23:42 107 H 100 11/10/20 23:37 106 H 100 11/10/20 23:36 109 H 145/101 11/10/20 23:32 107 H 100 11/10/20 23:27 105 H 100 11/10/20 23:25 97.8 F 11/10/20 23:22 106 H 100 11/10/20 23:21 109 H 141/77 11/10/20 23:17 112 H 98 11/10/20 23:12 104 H 100 11/10/20 23:08 114 H 87 11/10/20 23:07 104 H 99 11/10/20 23:05 108 H 134/88 11/10/20 23:02 112 H 100 11/10/20 23:01 112 H 89 11/10/20 22:57 97 H 100 11/10/20 22:52 105 H 100 11/10/20 22:51 111 H 127/75 11/10/20 22:48 112 H 91 11/10/20 22:47 112 H 92 11/10/20 22:42 111 H 100 11/10/20 22:37 113 H 100 11/10/20 22:35 102 H 140/92 11/10/20 22:32 107 H 95 11/10/20 22:27 113 H 99 11/10/20 22:22 106 H 99 11/10/20 22:21 108 H 136/95 11/10/20 22:17 107 H 99 11/10/20 22:12 114 H 100 11/10/20 22:07 106 H 138/85 100 11/10/20 22:02 96 H 100 11/10/20 21:57 94 H 100 11/10/20 21:52 94 H 128/90 100 11/10/20 21:47 95 H 100 11/10/20 21:42 89 100 11/10/20 21:37 97 H 100 11/10/20 21:36 98 H 138/86 11/10/20 21:32 94 H 100 11/10/20 21:27 88 100 11/10/20 21:22 103 H 100 11/10/20 21:20 95 H 141/91 11/10/20 21:17 93 H 100 11/10/20 21:12 87 100 11/10/20 21:07 92 H 100 11/10/20 21:05 96 H 137/86 11/10/20 21:02 93 H 100 11/10/20 20:57 106 H 97 11/10/20 20:52 82 100 11/10/20 20:51 83 135/86 11/10/20 20:47 83 100 11/10/20 20:42 81 100 11/10/20 20:37 85 100 11/10/20 20:32 84 100 11/10/20 20:27 81 100 11/10/20 20:22 84 100 11/10/20 20:20 83 137/86 11/10/20 20:17 84 100 11/10/20 20:12 88 100 11/10/20 20:07 87 100 11/10/20 20:06 84 137/83 11/10/20 20:02 92 H 100 11/10/20 19:57 92 H 100 11/10/20 19:52 105 H 99 11/10/20 19:49 85 112/64 11/10/20 19:48 55 L 88 11/10/20 19:47 78 100 11/10/20 19:42 84 100 11/10/20 19:37 96 H 100 11/10/20 19:32 88 100 11/10/20 19:30 87 114/59 11/10/20 19:27 89 100 11/10/20 19:23 86 109/63 11/10/20 19:22 87 100 11/10/20 19:19 93 H 114/66 11/10/20 19:17 98.8 F 91 H 14 110/72 100 11/10/20 19:15 87 110/72 11/10/20 19:12 89 100 11/10/20 19:08 87 104/59 11/10/20 19:07 88 100 11/10/20 19:05 86 109/58 11/10/20 19:02 86 100 11/10/20 18:58 85 101/57 11/10/20 18:57 91 H 100 11/10/20 18:53 88 107/60 11/10/20 18:52 88 99 11/10/20 18:49 85 118/65 11/10/20 18:47 89 99 11/10/20 18:45 90 115/62 11/10/20 18:42 98 H 99 11/10/20 18:38 99 H 141/80 11/10/20 18:37 109 H 100 11/10/20 18:34 92 H 133/76 11/10/20 18:32 91 H 99 11/10/20 18:28 111 H 134/87 11/10/20 18:27 105 H 99 11/10/20 18:24 101 H 153/94 11/10/20 18:22 101 H 99 11/10/20 18:17 107 H 99 11/10/20 18:12 104 H 100 11/10/20 18:07 99 H 99 11/10/20 18:02 97 H 99 11/10/20 17:57 107 H 100 11/10/20 17:52 101 H 99 11/10/20 17:47 102 H 98 11/10/20 17:42 116 H 96 11/10/20 17:37 98 H 98 11/10/20 17:32 95 H 100 11/10/20 17:27 94 H 98 11/10/20 17:22 104 H 97 11/10/20 17:17 101 H 98 11/10/20 17:12 106 H 98 11/10/20 17:11 99.0 F 11/10/20 17:07 86 98 11/10/20 16:40 96 H 141/92 11/10/20 16:36 96 H 100 11/10/20 16:30 88 11/10/20 16:27 100 H 100 11/10/20 16:20 105 H 98 11/10/20 16:15 101 H 96 11/10/20 16:12 101 H 84 11/10/20 16:09 101 H 99 11/10/20 16:04 91 H 99 11/10/20 15:59 96 H 99 11/10/20 15:54 94 H 98 11/10/20 15:38 37 L 92 11/10/20 15:35 68 94 11/10/20 15:32 97 H 100 11/10/20 15:29 91 11/10/20 15:23 63 87 11/10/20 15:21 105 H 99 11/10/20 15:01 99 H 99 11/10/20 14:56 105 H 97 11/10/20 14:51 102 H 99 11/10/20 14:47 98 H 165/98 11/10/20 14:46 105 H 98 11/10/20 14:41 101 H 98 11/10/20 14:37 109 H 88 11/10/20 14:36 107 H 98 11/10/20 14:28 102 H 99 11/10/20 14:27 102 H 137/89 11/10/20 14:23 104 H 100 11/10/20 14:18 112 H 99 11/10/20 14:09 105 H 100 11/10/20 14:04 99 H 98 11/10/20 13:59 101 H 99 11/10/20 13:58 113 H 93 11/10/20 13:54 103 H 99 11/10/20 13:51 61 91 11/10/20 13:49 109 H 100 11/10/20 13:47 106 H 157/92 11/10/20 13:44 106 H 100 11/10/20 13:42 104 H 172/115 92 11/10/20 13:39 108 H 100 11/10/20 13:34 111 H 100 11/10/20 13:29 106 H 100 11/10/20 13:28 79 94 11/10/20 13:24 109 H 100 11/10/20 13:19 111 H 100 11/10/20 12:55 102 H 141/94 11/10/20 12:46 98 H 158/97 11/10/20 12:38 105 H 175/106 11/10/20 11:37 100 H 99 11/10/20 11:32 91 H 100 11/10/20 11:27 88 100 11/10/20 11:22 108 H 100 11/10/20 11:17 91 H 100 11/10/20 11:12 95 H 100 11/10/20 11:07 87 99 11/10/20 11:02 100 H 99 11/10/20 10:57 104 H 100 11/10/20 10:52 95 H 100 11/10/20 10:47 99 H 100 11/10/20 10:42 104 H 100 11/10/20 10:37 99.0 F 96 H 16 157/87 100 11/10/20 10:34 98 H 157/87 11/10/20 10:33 100 H 167/107 Intake and Output 11/10/20 11/11/20 11/11/20 23:59 07:59 15:59 Intake Total 582.675 8403 893.083 Output Total 500 Balance 804.166 500 893.083 Intake: IV 996.252 6232 893.083 Lactated Ringers 1,000 ml 012.804 8566 33.333 @ 125 mls/hr IV DIRECT LIZ Rx#:[id number] MAGNESIUM SULFATE 40GM/ 752.5 1000ML 40 gm In 1,000 ml @ 2 GM/HR 50 mls/hr IV DIRECT LIZ Rx#:[id number] PITOCin/NS 30 UNIT/500ML 107.25 30 units In 500 ml @ 40 mls/hr IV TITR LIZ Rx#: [id number] Output: Urine 500 Indwelling Catheter 500 Other: Total, Output Amount 500 - Exam Breasts: Present: normal Cardiovascular: Present: Regular rate Lungs: Present: Normal air movement Abdomen: Present: normal appearance, soft Vulva: both: normal Uterus: Present: normal, firm, fundal height at umbilicus Extremities: Present: edema Incision: Present: normal, dry, intact Comments: small vaginal bleeding noted on pad - Labs Labs: Abnormal lab results 11/10/20 11/10/20 11/10/20 Range/Units 13:44 13:44 22:38 WBC 15.6 H (4.5-11.0) K/mm3 RBC 3.21 L (3.65-5.03) M/mm3 MCV 99 H (79-97) fl MCH 34 H (28-32) pg MCHC 35 H (30-34) % Creatinine 0.5 L (0.6-1.2) mg/dL Magnesium 4.30 H (1.7-2.3) mg/dL AST 80 H (5-40) units/L Lactate Dehydrogenase 613 H (91-180) units/L Urine WBC (Auto) (0.0-6.0) /HPF Membranes Rupture (Negative) 11/10/20 11/10/20 11/11/20 Range/Units Unknown Unknown 05:42 WBC (4.5-11.0) K/mm3 RBC (3.65-5.03) M/mm3 MCV (79-97) fl MCH (28-32) pg MCHC (30-34) % Creatinine (0.6-1.2) mg/dL Magnesium 5.80 H (1.7-2.3) mg/dL AST (5-40) units/L Lactate Dehydrogenase (91-180) units/L Urine WBC (Auto) 17.0 H (0.0-6.0) /HPF Membranes Rupture Positive A (Negative)
--- NOTE | 2020-11-12 08:14 | Progress Note ---
Assessment and Plan A: 40 y.o. POD #1 from primary . Pre eclampsia on magnesium. P: Magnesium infusion to be discontinued @ 0830am. Transfer to mother baby. Continue to monitor blood pressures and for s/sx of worsening pre eclampsia. Subjective - Subjective Date of service: 11/12/20 (Having gas pain) Principal diagnosis: POD #1, s/p primary , pre eclampsia on mag infusion Patient reports: pain well controlled : doing well Objective - Vital Signs Latest vital signs: Vital Signs Temp Pulse Resp BP BP Pulse Ox 11/12/20 08:08 86 98 11/12/20 08:03 82 98 11/12/20 07:58 84 97 11/12/20 07:53 90 97 11/12/20 07:48 85 98 11/12/20 07:43 87 97 11/12/20 07:38 84 96 11/12/20 07:36 84 94 11/12/20 07:33 84 95 11/12/20 07:29 88 90 11/12/20 07:28 82 96 11/12/20 07:23 89 79 L 11/12/20 07:18 82 92 11/12/20 07:17 86 94 11/12/20 07:13 85 95 11/12/20 07:12 89 90 11/12/20 07:08 85 96 11/12/20 07:04 85 94 11/12/20 07:03 91 H 96 11/12/20 06:59 87 94 11/12/20 06:58 82 95 11/12/20 06:53 89 90 11/12/20 06:48 84 96 11/12/20 06:43 84 96 11/12/20 06:38 84 97 11/12/20 06:33 87 138/79 95 11/12/20 06:28 81 94 11/12/20 06:27 85 93 11/12/20 06:23 90 94 11/12/20 06:20 84 93 11/12/20 06:18 85 95 11/12/20 06:15 83 93 11/12/20 06:13 96 H 97 11/12/20 06:08 87 95 11/12/20 06:07 82 94 11/12/20 06:03 82 93 11/12/20 06:01 83 94 11/12/20 05:58 85 97 11/12/20 05:53 89 96 11/12/20 05:48 88 98 11/12/20 05:43 91 H 97 11/12/20 05:38 93 H 96 11/12/20 05:33 87 97 06 05:28 91 H 96 11/12/20 05:23 84 99 11/12/20 05:22 89 92 11/12/20 05:18 87 98 11/12/20 05:13 84 99 11/12/20 05:08 85 99 11/12/20 05:03 84 98 11/12/20 04:58 84 98 11/12/20 04:57 87 93 11/12/20 04:53 84 99 11/12/20 04:50 83 93 11/12/20 04:48 80 97 11/12/20 04:43 81 98 11/12/20 04:38 79 97 11/12/20 04:35 93 H 92 11/12/20 04:33 81 97 11/12/20 04:28 81 96 11/12/20 04:23 78 97 11/12/20 04:18 79 98 11/12/20 04:13 81 95 11/12/20 04:08 82 97 11/12/20 04:04 75 135/84 11/12/20 04:03 82 97 11/12/20 03:58 81 98 11/12/20 03:53 82 98 11/12/20 03:48 83 97 11/12/20 03:43 76 97 11/12/20 03:38 83 97 11/12/20 03:34 87 136/84 11/12/20 03:33 84 95 11/12/20 03:28 77 97 11/12/20 03:23 82 97 11/12/20 03:18 79 97 11/12/20 03:14 82 94 11/12/20 03:13 82 96 11/12/20 03:08 83 97 11/12/20 03:04 82 124/75 11/12/20 03:03 84 97 11/12/20 02:58 86 96 11/12/20 02:57 85 94 11/12/20 02:53 87 97 11/12/20 02:48 88 99 11/12/20 02:43 92 H 97 11/12/20 02:38 87 99 06/26/21 02:34 85 122/75 94 11/12/20 02:33 89 98 11/12/20 02:28 91 H 98 11/12/20 02:23 87 98 11/12/20 02:18 85 97 11/12/20 02:13 90 99 11/12/20 02:08 94 H 98 11/12/20 02:04 85 126/74 11/12/20 02:03 85 98 11/12/20 01:58 91 H 99 11/12/20 01:53 87 98 11/12/20 01:48 91 H 98 11/12/20 01:43 98.3 F 93 H 98 11/12/20 01:38 94 H 98 11/12/20 01:34 104 H 143/78 11/12/20 01:33 84 99 11/12/20 01:28 95 H 98 11/12/20 01:23 97 H 98 11/12/20 01:18 91 H 99 11/12/20 01:13 89 98 11/12/20 01:08 89 97 11/12/20 01:04 94 H 136/92 94 11/12/20 01:03 93 H 98 11/12/20 00:58 95 H 98 11/12/20 00:53 104 H 98 11/12/20 00:48 93 H 98 11/12/20 00:43 103 H 98 11/12/20 00:38 104 H 98 11/12/20 00:34 93 H 124/68 94 11/12/20 00:33 93 H 97 11/12/20 00:28 96 H 98 11/12/20 00:23 90 98 11/12/20 00:18 91 H 98 11/12/20 00:13 90 98 11/12/20 00:08 91 H 99 11/12/20 00:04 92 H 139/81 94 11/12/20 00:03 93 H 98 11/11/20 23:58 93 H 99 11/11/20 23:53 87 99 11/11/20 23:48 93 H 99 11/11/20 23:43 92 H 99 11/11/20 23:38 89 98 11/11/20 23:34 85 110/66 11/11/20 23:33 85 96 11/11/20 23:28 93 H 97 06/25/21 23:23 96 H 100 11/11/20 23:18 91 H 97 11/11/20 23:13 95 H 99 11/11/20 23:08 90 99 11/11/20 23:04 86 115/70 11/11/20 23:03 86 98 11/11/20 22:58 93 H 99 11/11/20 22:53 89 99 11/11/20 22:48 87 99 11/11/20 22:43 91 H 98 11/11/20 22:38 94 H 99 11/11/20 22:34 88 122/68 11/11/20 22:33 88 97 11/11/20 22:28 95 H 98 11/11/20 22:23 89 98 11/11/20 22:18 91 H 98 11/11/20 22:13 92 H 99 11/11/20 22:08 97 H 98 11/11/20 22:04 91 H 128/73 11/11/20 22:03 91 H 99 11/11/20 21:58 94 H 99 11/11/20 21:53 96 H 98 11/11/20 21:48 96 H 99 11/11/20 21:43 94 H 100 11/11/20 21:38 94 H 98 11/11/20 21:33 91 H 122/72 97 11/11/20 21:28 91 H 98 11/11/20 21:23 90 98 11/11/20 21:18 89 98 11/11/20 21:13 93 H 98 11/11/20 21:08 97 H 98 11/11/20 21:04 89 128/82 11/11/20 21:03 89 97 11/11/20 20:58 93 H 97 11/11/20 20:53 98 H 99 11/11/20 20:48 98 H 96 11/11/20 20:43 93 H 97 11/11/20 20:38 96 H 97 11/11/20 20:33 90 125/72 97 11/11/20 20:28 94 H 97 11/11/20 20:23 99 H 99 11/11/20 20:18 95 H 98 11/11/20 20:17 99.3 F 92 H 16 126/76 99 11/11/20 20:13 99 H 98 11/11/20 20:08 95 H 99 11/11/20 20:04 92 H 126/75 11/11/20 20:03 92 H 98 11/11/20 19:58 92 H 98 11/11/20 19:53 89 99 11/11/20 19:51 90 92 11/11/20 19:48 95 H 99 11/11/20 19:43 94 H 98 11/11/20 19:38 93 H 99 11/11/20 19:33 93 H 99 11/11/20 19:28 94 H 99 11/11/20 19:25 94 H 123/76 11/11/20 19:23 95 H 98 11/11/20 19:18 88 99 11/11/20 19:13 88 98 11/11/20 19:08 94 H 98 11/11/20 19:03 91 H 98 11/11/20 18:58 89 99 11/11/20 18:53 89 99 11/11/20 18:48 91 H 99 11/11/20 18:43 96 H 100 11/11/20 18:40 92 H 128/76 11/11/20 18:38 95 H 99 11/11/20 18:33 91 H 99 11/11/20 18:28 98 H 99 11/11/20 18:23 94 H 99 11/11/20 18:18 100 H 99 11/11/20 18:13 101 H 99 11/11/20 18:08 94 H 97 11/11/20 18:03 93 H 99 11/11/20 17:58 102 H 96 11/11/20 17:53 98 H 98 11/11/20 17:48 95 H 99 11/11/20 17:43 96 H 99 11/11/20 17:40 92 H 126/77 11/11/20 17:38 95 H 98 11/11/20 17:33 94 H 99 11/11/20 17:28 94 H 98 11/11/20 17:23 91 H 98 11/11/20 17:18 97 H 98 11/11/20 17:13 99 H 98 11/11/20 17:08 87 100 11/11/20 17:03 98 H 98 11/11/20 16:58 99 H 98 11/11/20 16:53 100 H 99 11/11/20 16:48 95 H 99 11/11/20 16:43 98 H 98 11/11/20 16:38 98 H 97 11/11/20 16:33 91 H 98 11/11/20 16:28 92 H 98 11/11/20 16:23 89 98 06 16:18 95 H 98 11/11/20 16:13 92 H 97 11/11/20 16:08 92 H 98 11/11/20 16:03 92 H 97 11/11/20 15:58 91 H 97 11/11/20 15:53 89 97 11/11/20 15:48 88 97 11/11/20 15:43 89 98 11/11/20 15:40 90 136/83 11/11/20 15:38 91 H 98 11/11/20 15:33 100 H 97 11/11/20 15:28 96 H 97 11/11/20 15:23 93 H 98 11/11/20 15:20 98.3 F 18 98 11/11/20 15:18 91 H 98 11/11/20 15:13 90 97 11/11/20 15:08 89 98 11/11/20 15:03 88 99 11/11/20 14:58 92 H 99 11/11/20 14:53 94 H 98 11/11/20 14:48 94 H 99 11/11/20 14:43 91 H 98 11/11/20 14:40 93 H 138/82 11/11/20 14:38 94 H 99 11/11/20 14:33 93 H 98 11/11/20 14:28 93 H 97 11/11/20 14:22 93 H 98 11/11/20 14:17 95 H 98 11/11/20 14:12 91 H 99 11/11/20 14:07 91 H 98 11/11/20 14:02 92 H 99 11/11/20 13:57 93 H 99 11/11/20 13:52 91 H 99 11/11/20 13:47 93 H 99 11/11/20 13:42 94 H 99 11/11/20 13:40 93 H 139/74 11/11/20 13:37 92 H 99 11/11/20 13:32 92 H 98 11/11/20 13:27 93 H 99 11/11/20 13:22 92 H 99 11/11/20 13:17 90 98 11/11/20 13:12 91 H 99 11/11/20 13:07 98.1 F 94 H 16 99 11/11/20 13:02 92 H 99 11/11/20 12:57 96 H 100 11/11/20 12:52 96 H 99 11/11/20 12:47 93 H 100 11/11/20 12:42 88 100 11/11/20 12:37 91 H 99 11/11/20 12:34 86 144/82 11/11/20 12:32 86 100 11/11/20 12:29 90 144/77 11/11/20 12:27 93 H 100 11/11/20 12:24 89 149/74 11/11/20 12:22 85 100 11/11/20 12:19 92 H 145/67 11/11/20 12:17 93 H 99 11/11/20 12:14 89 142/75 11/11/20 12:12 84 99 11/11/20 12:09 83 138/83 11/11/20 12:07 82 99 11/11/20 12:04 83 137/83 11/11/20 12:02 81 99 11/11/20 11:59 83 148/76 11/11/20 11:57 84 99 11/11/20 11:55 90 148/71 11/11/20 11:52 85 100 11/11/20 11:49 95 H 144/93 11/11/20 11:47 89 98 11/11/20 11:44 87 148/90 11/11/20 11:42 91 H 99 11/11/20 11:39 86 139/88 11/11/20 11:37 89 100 11/11/20 11:34 90 137/91 11/11/20 11:32 96 H 99 11/11/20 11:29 86 136/83 11/11/20 11:27 86 98 11/11/20 11:24 86 132/79 11/11/20 11:22 85 98 11/11/20 11:19 86 131/81 11/11/20 11:17 87 98 11/11/20 11:14 86 130/81 11/11/20 11:12 86 97 11/11/20 11:09 85 134/82 11/11/20 11:07 84 98 06/25/21 11:04 85 137/85 11/11/20 11:02 86 98 11/11/20 10:59 86 141/85 11/11/20 10:57 90 99 11/11/20 10:54 86 142/84 11/11/20 10:52 85 98 11/11/20 10:49 88 139/74 11/11/20 10:47 87 98 11/11/20 10:44 87 149/80 11/11/20 10:42 87 99 11/11/20 10:39 85 145/84 11/11/20 10:37 86 98 11/11/20 10:34 88 144/82 11/11/20 10:32 89 98 11/11/20 10:27 92 H 99 11/11/20 10:24 88 137/85 11/11/20 10:22 88 97 11/11/20 10:19 88 140/86 11/11/20 10:17 87 97 11/11/20 10:14 86 140/87 11/11/20 10:12 85 97 11/11/20 09:54 90 127/70 11/11/20 09:52 89 97 11/11/20 09:39 88 144/86 11/11/20 09:37 89 98 11/11/20 09:32 86 98 11/11/20 09:29 86 137/79 11/11/20 09:27 88 98 11/11/20 09:24 86 136/77 11/11/20 09:22 90 97 11/11/20 09:19 87 137/78 11/11/20 09:17 88 98 11/11/20 09:14 86 130/77 11/11/20 09:12 87 97 11/11/20 09:09 90 130/77 11/11/20 09:07 89 97 11/11/20 09:04 86 133/77 11/11/20 09:02 88 97 11/11/20 08:59 89 132/79 11/11/20 08:57 90 96 11/11/20 08:54 87 129/77 11/11/20 08:52 88 98 11/11/20 08:49 86 130/75 11/11/20 08:47 87 98 11/11/20 08:44 86 135/81 94 11/11/20 08:42 87 98 11/11/20 08:39 84 118/60 11/11/20 08:37 92 H 98 11/11/20 08:34 89 148/71 11/11/20 08:32 94 H 98 11/11/20 08:29 91 H 128/67 11/11/20 08:27 92 H 97 11/11/20 08:24 93 H 124/68 11/11/20 08:22 93 H 97 11/11/20 08:19 86 129/69 11/11/20 08:17 87 97 Intake and Output 11/11/20 11/12/20 11/12/20 22:59 06:59 14:59 Output Total 2500 1850 Balance -2500 -1850 Output: Urine 2500 1850 Indwelling Catheter 2500 1850 Other: Total, Output Amount 350 300 - Exam Narrative Exam: Pt denies FINE, blurred vision, spots before her eyes, shortness of breath, upper abdominal pain, and chest pain. Explained plan of care to turn off mag at 0830 am and to transfer her upstairs to continue with care. Pt verbalized understanding. Blood pressure ranges have been 110-130's/60-80's. Breasts: Present: deferred Cardiovascular: Present: Normal S1, Normal S2 Lungs: Present: Clear to auscultation Abdomen: Present: normal appearance, soft, other (Hypoactive) Vulva: both: normal Uterus: Present: normal Extremities: Present: edema (Trace edema to bilateral lower extremities. ) Deep Tendon Reflex Grade: Normal +2 Incision: Present: normal, dry, intact, other (No s/sx of infection, no drainage noted. ) - Labs Labs: Abnormal lab results 11/11/20 11/11/20 11/11/20 Range/Units 10:55 16:39 23:34 Magnesium 4.90 H 5.20 H 5.10 H (1.7-2.3) mg/dL 11/12/20 Range/Units 04:07 Magnesium 5.00 H (1.7-2.3) mg/dL
[2020-11-12] MEDS ORDERED: HYDROcodone/ACETAMINOPHEN 5-325 MG TAB PO PRN (10:00)
[2020-11-12] MEDS ORDERED: D5W/LACTATED RINGERS 1,000 ML IV SCH (10:00)
[2020-11-12] MEDS ORDERED: KETOROLAC 30 MG/1 ML INJ IV SCH (10:00)
[2020-11-12] MEDS ORDERED: OXYTOCIN DRIP 30 UNITS/500 ML BAG IV SCH (10:00)
[2020-11-12] MEDS ORDERED: MAGNESIUM SULFATE 40GM/1000ML 40 GM/1,000 ML BAG IV SCH (10:00)
[2020-11-12] MEDS ORDERED: NALOXONE 0.4 MG/1 ML INJ IV PRN (10:00)
[2020-11-12] MEDS ORDERED: LANOLIN/ZINC/DIMETHICONE (LANSINOH) 7 GM TP PRN (10:00)
[2020-11-12] MEDS ORDERED: ONDANSETRON 4 MG/2 ML INJ IV PRN (10:00)
[2020-11-12] MEDS ORDERED: WITCH HAZEL/ GLYCERIN PAD TP PRN (10:00)
[2020-11-12] MEDS: HYDROcodone/ACETAMINOPHEN 5-325 MG TAB PO PRN ×2 (10:38→17:15)
[2020-11-12] MEDS: ceFAZolin/NS 1 GM/50 ML 1 GM/50 ML BAG IV SCH ×2 (10:39→17:10)
[2020-11-12 11:41] LABS: Hematocrit 28.6 % (30.3-42.9)
--- NOTE | 2020-11-12 14:40 | Post Anesthesia Evaluation ---
- Post Anesthesia Evaluation Patient Participated: Yes Airway Patent: Yes Stable Respiratory Function: Yes Nausea/Vomiting: No Temp > 96.8F: Yes Pain Manageable: Yes Adequeate Hydration: Yes Anesthesia Complications: No Block Receding Appropriately: Yes Patient on Ventilator: No
[2020-11-12] MEDS: FERROUS SULFATE 325 MG TAB PO SCH (17:16)
[2020-11-12] MEDS: PRENATAL VIT27-FE FUMARATE-FOLIC ACID VIT TAB PO SCH (17:58)
[2020-11-13] MEDS: HYDROcodone/ACETAMINOPHEN 5-325 MG TAB PO PRN (05:45)
--- NOTE | 2020-11-13 09:04 | Progress Note ---
Assessment and Plan A: 40 y.o. s/p primary , POD #2. Pre eclampsia post magnesium infusion. P: Continue with care. Pt to take Labetalol this AM. Will continue to monitor blood pressures and s/sx of worsening pre eclampsia. Discharge home in AM. Subjective - Subjective Date of service: 11/13/20 (Pt doing well. ) Principal diagnosis: POD #2, s/p primary , pre eclampsia on mag infusion Patient reports: appetite normal, voiding normally, pain well controlled, flatus, ambulating normally : doing well Objective - Vital Signs Latest vital signs: Vital Signs Temp Pulse Resp BP BP Pulse Ox 11/13/20 05:45 20 11/13/20 04:19 88 139/80 97 11/13/20 00:03 98.9 F 88 20 140/84 96 11/12/20 22:53 91 H 145/88 11/12/20 22:47 91 H 145/88 99 11/12/20 20:47 94 H 140/73 99 11/12/20 16:11 97.8 F 79 20 145/93 98 11/12/20 11:33 98.2 F 86 20 137/82 97 11/12/20 10:15 144/91 11/12/20 09:50 97.7 F 105 H 175/97 Intake and Output 11/12/20 11/13/20 11/13/20 22:59 06:59 14:59 Intake Total 240 240 Output Total 250 Balance -10 240 Intake: Oral 240 240 Output: Urine 250 Void 250 Other: Total, Intake Amount 120 120 Total, Output Amount 250 # Voids Void 1 1 - Exam Narrative Exam: Pt denies blurred vision, spots before her eyes, chest pain, shortness of breath, and upper abdominal pain. It was reported by RN that patient refused her blood pressure medication last night. Blood pressure ranges have been 130-140's/80-90's. Explained the importance of taking her blood pressure me dication at this time. We also discussed high blood pressures can lead to stroke and . Pt verbalized understanding and will take her blood pressure medication. Will continue to monitor blood pressures and discharge home in AM. Breasts: Present: deferred Cardiovascular: Present: Regular rate Lungs: Present: Normal air movement Abdomen: Present: normal appearance, soft Vulva: both: normal Uterus: Present: normal, firm Extremities: Present: normal Incision: Present: normal, dry, intact - Labs Labs: Abnormal lab results 11/12/20 Range/Units 11:10 Hgb 10.0 L (10.1-14.3) gm/dl Hct 28.6 L (30.3-42.9) %
[2020-11-13] MEDS: FERROUS SULFATE 325 MG TAB PO SCH (10:30)
[2020-11-13] MEDS: PRENATAL VIT27-FE FUMARATE-FOLIC ACID VIT TAB PO SCH (10:30)
[2020-11-13] MEDS: IBUPROFEN 800 MG TAB PO PRN ×2 (14:50→22:23)
[2020-11-14] MEDS: IBUPROFEN 800 MG TAB PO PRN ×2 (04:19→12:37)
--- NOTE | 2020-11-14 06:43 | Discharge Summary ---
Providers - Providers Date of Admission: 11/10/20 13:05 Date of discharge: 11/14/20 (pt desires d/c today) Attending physician: MILAN LIRA 11/12/20 10:00 Consult to [employer] [CONS] Routine Reason For Exam: Primary care physician: MILAN LIRA Hospitalization Reason for admission: active labor, IUP at term Delivery: Procedure: primary low transverse Episiotomy: none Laceration: none Incision: normal, dry, intact Other procedures: none complications: other (PreE D/C home on Labetalol 200mg po BID) Discharge diagnosis: IUP at term delivered [place] baby: female Condition at discharge: Good Disposition: DC-01 TO HOME OR SELFCARE - Discharge Diagnoses (1) delivery delivered Status: Acute Comment: RTO 1 week postop care (2) Pre-eclampsia Status: Acute Qualifiers: Trimester: third trimester Qualified Code(s): O14.93 - Unspecified pre-e clampsia, third trimester Comment: RTO Saturday11-18-20 for BP check D/C home on Labetalol Plan - Discharge Medications Prescriptions: Ferrous Sulfate [Feosol 325 MG tab] 325 mg PO BID #60 tablet labetaloL [Labetalol 200mg TAB] 200 mg PO BID #60 tablet Ibuprofen [Motrin] 800 mg PO TID PRN #30 tablet PRN Reason: Pain oxyCODONE /ACETAMINOPHEN [Percocet 5/325 mg] 1 - 2 tab PO Q6HR PRN #20 tablet PRN Reason: Pain - Provider Discharge Summary Activity: routine, no sex for 6 weeks, no heavy lifting 4 weeks, no strenuous exercise Diet: routine Instructions: routine Additional instructions: [] Smoking cessation referral if applicable(refer to patient education folder for contact #) [] Refer to [facility] Booklet Call your doctor immediately for: * Fever > 100.5 * Heavy vaginal bleeding ( >1 pad per hour) * Severe persistent headache * Shortness of breath * Reddened, hot, painful area to leg or breast * Drainage or odor from incision. * Keep incision clean and dry at all times and follow doctor's instructions regarding bathing/showering - Follow up plan Follow up: MILAN LIRA MD [Primary Care Provider] - 11/18/20 (Congratulations! Please call [phone] to schedule your postoperative visit and your blood pressure check Saturday11-18-20. Call for an appointment time. Call with headache, not relieved with Tylenol, blurred vision, chest pain. Take medications as prescribed. Call with any concerns.)
[2020-11-14] MEDS: HYDROcodone/ACETAMINOPHEN 5-325 MG TAB PO PRN (09:55)
[2020-11-14] MEDS: PRENATAL VIT27-FE FUMARATE-FOLIC ACID VIT TAB PO SCH (09:55)
[2020-11-14] MEDS: FERROUS SULFATE 325 MG TAB PO SCH (09:55)
[2020-11-14 12:38] VITALS: BP 142/80
== END 2020-11-14 13:15 | disposition home or self-care (01) | DRG 766 ==
LOC: TRG 10:07 → APU 10:09 → OB 10:09 → TRG 13:04 → LD 13:05 → TRG 11-11 07:16 → UNDOADMOB 11-11 07:16 → LD 11-11 07:16 → UNDOADMIN 11-11 07:26 → LD 11-11 07:42 → OB 11-12 09:41
PROVIDERS: ADMIT Obstetrics & Gynecology; ATTEND Obstetrics & Gynecology
PROC: 10D00Z1 Extraction of Products of Conception, Low, Open Approach (ICD-10-PCS; principal; 2020-11-11)
DX: O14.94 Unspecified pre-eclampsia, complicating childbirth (principal); O99.214 Obesity complicating childbirth; O76 Abnormality in fetal heart rate and rhythm complicating labor and delivery; Z3A.38 38 weeks gestation of pregnancy; Z37.0 Single live birth; Z20.822 Contact with and (suspected) exposure to COVID-19; O75.0 Maternal distress during labor and delivery; E66.9 Obesity, unspecified
CPT/HCPCS: 36415; 81001; 82565; 83615; 83735; 84112; 84450; 84460; 84550; 85014; 85018; 85027; 86592; 86850; 86900; 86901; 87086; G0378; A6250; J0690; J1100; J1885; J2590; J3010; J3475; J3490; J7120; U0003